=== PATIENT | female | born 2005 | race Caucasian/White ===

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

== ENCOUNTER 2023-01-14 17:56 | Outpatient (CLI) | payer OTHER, SELFPAY ==
[2023-01-14 18:12] VITALS: BMI 25.4
[2023-01-14 18:29] LABS: Microscopic, Urine URINE MICROSCOPIC (MICROSCOPIC)
[2023-01-14 18:37] VITALS: BP 124/86; PULSE 85; RESP 18; TEMP 36.8; O2SAT 100; BMI 26.9
[2023-01-14 18:43] LABS: Appearance,Urine CLEAR (Clear); Bilirubin,Urine Negative (Negative); Blood, Urine Negative (Negative); Color,Urine YELLOW (Yellow); Glucose,Urine (UA) Negative (Negative); Ketones,Urine Negative (Negative); Leukocyte Esterase,Urine 2+ (Negative); Nitrate,Urine Negative (Negative); Protein,Urine Negative (Negative); Specific Gravity, Urine 1.025 (1.005-1.030); Urobilinogen,Urine 0.2 EU/dl (0.2)
[2023-01-14 18:50] LABS: Fetal Membrane Rupture (Rapid) Negative (Negative)
[2023-01-14 18:56] LABS: Amphetamine/Metha Screen,Urine Negative ng/ml (<1000)
[2023-01-14 18:57] LABS: Benzodiazepines Screen,Urine Negative ng/ml (<200)
[2023-01-14 18:58] LABS: Cannabinoid Screen,Urine Negative ng/ml (<50); Cocaine Screen,Urine Negative ng/ml (<300)
[2023-01-14 18:59] LABS: Methadone Screen,Urine Negative ng/ml (<300)
[2023-01-14 19:00] LABS: Opiate Screen,Urine Negative ng/ml (<300); Phencyclidine Screen,Urine Negative ng/ml (<25)
[2023-01-14 19:03] LABS: Barbiturates Screen,Urine Negative ng/ml (<200)
[2023-01-14 19:16] LABS: Bacteria,Urine Trace /lpf
== END 2023-01-14 19:27 | disposition home or self-care (01) ==
LOC: OBOUT 17:58 → OB 17:59
PROVIDERS: PCP Nurse Practitioner; Visit Provider Obstetrics & Gynecology
DX: O26.892 Other specified pregnancy related conditions, second trimester (principal); Z3A.26 26 weeks gestation of pregnancy; B96.5 Pseudomonas (aeruginosa) (mallei) (pseudomallei) as the cause of diseases classified elsewhere
CPT/HCPCS: 59025; 80305; 81001; 84112; 87086; G0463

== ENCOUNTER → 2023-01-22 23:39 | Outpatient (CLI) | payer OTHER, SELFPAY ==
[2023-01-22 23:48] VITALS: BMI 29.2
[2023-01-23 00:02] VITALS: BP 128/98; PULSE 108; RESP 18; TEMP 36.4; O2SAT 99
--- NOTE | 2023-01-23 00:19 | PC.NURSE ---
Pt presents for ob outpatient infusion, vital signs good, see meditech. 18 patrick to left ac,1 attempt pt tolerated well. gentamyin order faxed to pharmacy for dosing, order in apr, started infusion at 0017, pt tolerated well.
--- NOTE | 2023-01-23 01:08 | PC.NURSE ---
Iv taken out at this time, infusion completed, pt tolerated well, coband applied and pt ambulated off unit
== END ==
PROVIDERS: PCP Nurse Practitioner; Visit Provider Obstetrics & Gynecology
DX: O23.42 Unspecified infection of urinary tract in pregnancy, second trimester (principal); N39.0 Urinary tract infection, site not specified; Z3A.26 26 weeks gestation of pregnancy
CPT/HCPCS: 96365

== ENCOUNTER → 2023-01-27 08:28 | Outpatient (CLI) | payer OTHER, SELFPAY ==
[2023-01-27 09:12] LABS: Basophils # 0.1 K/mm3 (0-0.2); Basophils % 0.4 % (0.1-2.0); Eosinophils # 0.2 K/mm3 (0.0-0.4); Eosinophils % 1.7 % (0.1-12.0); Hematocrit 37.8 % (37.0-47.0); Hemoglobin 13.1 g/dL (12.2-16.2); Lymphocytes # 2.2 K/mm3 (0.7-4.5); Lymphocytes % 16.5 % (10-50); Mean Corpuscular HGB Conc 34.6 g/dL (31.8-35.4); Mean Corpuscular Hemoglobin 31.6 pg (27.0-31.2); Mean Corpuscular Volume 91.4 fl (81-99); Mean Platelet Volume 8.6 fl (7.4-10.4); Monocytes # 0.5 K/mm3 (0.1-1.0); Monocytes % 3.9 % (1.7-9.3); Neutrophils # 10.4 K/mm3 (1.8-7.8); Neutrophils % 77.4 % (37.0-80.0); Platelet Count 241 K/mm3 (142-424); Red Blood Count 4.13 M/mm3 (4.20-5.40); Red Cell Distribution Width 13.7 % (11.5-17.5); White Blood Count 13.5 K/mm3 (4.5-13.0)
[2023-01-27 09:37] LABS: Glucose,Fasting 90 mg/dl (74-100)
[2023-01-27 10:14] LABS: Glucose 1 Hour 138 mg/dL (74-100)
== END ==
PROVIDERS: PCP Nurse Practitioner; Visit Provider Obstetrics & Gynecology
DX: Z34.93 Encounter for supervision of normal pregnancy, unspecified, third trimester (principal); Z3A.28 28 weeks gestation of pregnancy
CPT/HCPCS: 36415; 82951; 85025

== ENCOUNTER → 2023-02-01 07:54 | Outpatient (CLI) | payer OTHER, SELFPAY ==
[2023-02-01 08:34] LABS: Glucose,Fasting 81 mg/dl (74-100)
[2023-02-01 09:55] LABS: Glucose 1 Hour 98 mg/dL (74-100)
[2023-02-01 10:48] LABS: Glucose 2 Hour 70 mg/dL (74-100)
[2023-02-01 12:03] LABS: Glucose 3 Hour 54 mg/dL (74-100)
== END ==
PROVIDERS: PCP Nurse Practitioner; Visit Provider Obstetrics & Gynecology
DX: Z34.93 Encounter for supervision of normal pregnancy, unspecified, third trimester (principal); Z3A.28 28 weeks gestation of pregnancy
CPT/HCPCS: 36415; 82951

== ENCOUNTER 2023-03-24 16:49 | Outpatient (CLI) | payer OTHER, SELFPAY | END 2023-03-24 23:59 | LOC: LAB.DROPOF 16:49 | PROVIDERS: PCP Obstetrics & Gynecology; Visit Provider Obstetrics & Gynecology | DX: Z34.83 Encounter for supervision of other normal pregnancy, third trimester (principal); Z3A.37 37 weeks gestation of pregnancy | CPT/HCPCS: 86403 ==

== ENCOUNTER 2023-04-07 16:16 | Inpatient (IN) | payer OTHER, SELFPAY ==
[2023-04-07 14:37] VITALS: BMI 31.4
[2023-04-07 15:08] LABS: Basophils % 0.4 % (0.1-2.0); Eosinophils # 0.1 K/mm3 (0.0-0.4); Eosinophils % 0.8 % (0.1-12.0); Hemoglobin 11.7 g/dL (12.2-16.2); Lymphocytes # 1.5 K/mm3 (0.7-4.5); Lymphocytes % 14.1 % (10-50); Mean Corpuscular HGB Conc 33.5 g/dL (31.8-35.4); Mean Corpuscular Volume 89.6 fl (81-99); Monocytes # 0.4 K/mm3 (0.1-1.0); Monocytes % 3.9 % (1.7-9.3); Neutrophils # 8.8 K/mm3 (1.8-7.8); Neutrophils % 80.9 % (37.0-80.0); Platelet Count 297 K/mm3 (142-424); Red Blood Count 3.91 M/mm3 (4.20-5.40); Red Cell Distribution Width 13.6 % (11.5-17.5); White Blood Count 10.9 K/mm3 (4.5-13.0)
[2023-04-07 15:15] LABS: Chloride 108 mmol/L (98-107); Potassium 3.5 mmoL/L (3.5-5.1); Sodium 136 mmol/L (136-145)
[2023-04-07 15:18] LABS: Alanine Aminotransferase 21 U/L (12-78); Anion Gap 6.5 mEq/L (5-15); Aspartate Amino Transferase 26 U/L (14-36); Blood Urea Nitrogen 6 mg/dl (7-17); Carbon Dioxide 25 mmol/L (22.0-30.0); Creatinine Clearance Estimated 237 mL/min (50-200); Estimated Glomerular Filt Rate 159 ml/min (>60); GFR (African American) 192 ML/MIN (>60)
[2023-04-07 15:19] LABS: Calcium 8.6 mg/dl (8.4-10.2); Glucose 118 mg/dl (74-100)
[2023-04-07 15:22] LABS: Activated Partial Thrombo Time 25.4 seconds (22.8-30.6); Fibrinogen 444 mg/dL (229.9-363.5); Prothrombin Time 9.8 seconds (10.1-12.5)
[2023-04-07 15:25] LABS: Uric Acid 4.9 mg/dl (2.5-6.2)
[2023-04-07 15:35] LABS: Microscopic, Urine URINE MICROSCOPIC (MICROSCOPIC)
[2023-04-07 15:40] LABS: Appearance,Urine CLEAR (Clear); Bilirubin,Urine Negative (Negative); Blood, Urine 1+ (Negative); Color,Urine YELLOW (Yellow); Glucose,Urine (UA) Negative (Negative); Ketones,Urine Negative (Negative); Leukocyte Esterase,Urine TRACE (Negative); Nitrate,Urine Negative (Negative); PH,Urine 7.5 (5.0-8.5); Protein,Urine Negative (Negative); Urobilinogen,Urine 0.2 EU/dl (0.2)
[2023-04-07 15:51] LABS: Amphetamine/Metha Screen,Urine Negative ng/ml (<1000)
[2023-04-07 15:52] LABS: Barbiturates Screen,Urine Negative ng/ml (<200)
[2023-04-07 15:53] LABS: Benzodiazepines Screen,Urine Negative ng/ml (<200); Cannabinoid Screen,Urine Negative ng/ml (<50)
[2023-04-07 15:54] LABS: Cocaine Screen,Urine Negative ng/ml (<300)
[2023-04-07 15:55] LABS: Methadone Screen,Urine Negative ng/ml (<300); Opiate Screen,Urine Negative ng/ml (<300)
[2023-04-07 15:56] LABS: Phencyclidine Screen,Urine Negative ng/ml (<25)
[2023-04-07 16:27] LABS: Bacteria,Urine Trace /lpf
[2023-04-07 17:02] LABS: Creatinine,Urine Random 121 mg/dL (Not Estab.)
[2023-04-07 17:08] LABS: Microalbumin/Creatinine Ratio 17.8
--- NOTE | 2023-04-07 17:24 | P.HP_ITS ---
OB - H&P: HPI Antepartum History of Present Illness Chief complaint: Induction of labor of TN History of present illness: Ms Danna Cordoba is a 17 yo at 38w0d who was sent to [facility] L&D from the office for mild range BP. She reports BP at home was 148/110. In the office BP was 140/98. She admits to pelvic pressure, cramping and back pain. No headaches or vision changes. No swelling. Baby is active. No vaginal bleeding or leakage of fluid. GBS negative History of Present Criteria for establishing EDC:: LMP confirmed by 1st trimester US care: good care Ultrasounds: normal mid trimester US Medical complications: none Labs Blood type: B (+) positive Rubella: immune RPR/VDRL: nonreactive GBS status: negative HBsAG: negative [facility] Disclaimer: The information contained in this section may have been updated after the patient was seen, as this information can be updated by other users. Medical History (Updated 04/07/23 @ 17:35 by Jackie Mcmullen DO) 38 weeks gestation of Anxiety Dysuria Elevated blood pressure reading Gestational hypertension Migraine Nausea and vomiting during Surgical History History of excision of pilonidal cyst History of tonsillectomy Family History Other Mitral valve prolapse Social History Smoking Status: Never smoker alcohol intake: never substance use type: denies use current occupational status: unemployed Travel in the last 8 weeks: None Review of Systems Review of Systems Review of systems:: pertinent systems reviewed and negative unless documented below *Genitourinary Comments: + pelvic cramping, pressure *Musculoskeletal Comments: + low back pain Meds Home Medications and Allergies Home Medications Medication Instructions Recorded Confirmed Type promethazine 25 mg rectal 25 mg CO Q8HP PRN nausea and 09/17/22 04/07/23 Rx suppository (Promethegan) vomiting #12 ea magnesium oxide 400 mg (241.3 mg See Rx Instructions .Route 09/25/22 04/07/23 Rx magnesium) tablet .COMPLEX #60 tabs vits no.126-ferrous fum tab PO DAILY 11/12/22 04/07/23 History 28 mg iron-folic acid 800 mcg tablet (Classic ) New Prescriptions to Start Prescriptions: Allergies Allergy/AdvReac Type Severity Reaction Status Date / Time No Known Allergies Allergy Verified 04/07/23 13:41 OB - H&P: Exam Constitutional no acute distress and cooperative Routine HEENT Exam Head: Present normocephalic and atraumatic Eye: Absent conjunctivae pink ENT: Present mucous membranes moist Routine Neck Exam Present full ROM Routine Respiratory Exam Present CTA bilaterally and normal respiratory effort Routine Cardiovascular Exam Present RRR Routine Abdominal Exam Present soft (Gravid); Absent tenderness Routine Rectal Exam Patient deferred: visual exam Routine Exam External: Present normal urethra appearance; Absent erythema, tenderness, lesions or lacerations Routine Extremities Exam Present full ROM; Absent edema or calf tenderness Routine Neurological Exam Present alert, moving all extremities and normal speech Routine Psychiatric Exam Present normal affect and cooperative Detailed Labor and Delivery Exam Dilation (cm): 2 Effacement (%): 70 Cervix position: posterior station: -1 Consistency: soft Membranes: intact Baseline heart rate: 150 monitor accelerations: Present monitor decelerations: None terminal gauger variability: Moderate (11-25) Contraction frequency (min): 2 OB - Results Labs Labs: Short CBC 04/07/23 Range/Units 14:55 WBC 10.9 (4.5-13.0) K/mm3 Hgb 11.7 L (12.2-16.2) g/dL Hct 35.0 L (37.0-47.0) % Plt Count 297 (142-424) K/mm3 BMP 04/07/23 14:55 Sodium 136 Potassium 3.5 Chloride 108 H Carbon Dioxide 25 BUN 6 L Creatinine 0.50 L Glucose 118 H Calcium 8.6 Liver Function 04/07/23 Range/Units 14:55 AST 26 (14-36) U/L ALT 21 (12-78) U/L Urine 04/07/23 Range/Units 15:30 Urine Color Yellow (Yellow) Urine Appearance Clear (Clear) Urine pH 7.5 (5.0-8.5) Ur Specific [place] 1.020 (1.005-1.030) Urine Protein Negative (Negative) Urine Glucose (UA) Negative (Negative) OB - A/P Antepartum (1) 38 weeks gestation of : Status: Acute (2) Gestational hypertension: Status: Acute Additional Plan Planning to breastfeed?: Yes Additional Information:: Admit for induction of labor secondary to new onset gestational hypertension PIH labs within normal limits GBS negative Induction of labor with Cytotec and Pitocin if needed. She is ni every 2 minutes on her own. Close monitoring Anticipate
[2023-04-07 19:09] VITALS: BP 137/93; PULSE 116; RESP 18; TEMP 36.9; O2SAT 99; BMI 31.4
[2023-04-07 20:08] VITALS: BP 124/78; PULSE 106; RESP 17; TEMP 36.7; O2SAT 97
[2023-04-08] MEDS: OXYTOCIN/RINGERS LACTATE 30 UNITS/500 ML BAG IV (03:56)
[2023-04-08] MEDS: DEXTROSE 5%-LACTATED RINGERS 1,000 ML 125 ML IV (03:56)
--- NOTE | 2023-04-08 07:26 | EXP.LABOR.NO ---
Labor Note Subjective: Date: 04/08/23 Time: 07:26 regular contraction Objective: NST:: Reactive Contractions:: every 2-3 minutes Cervical Dilation:: 4 Effacement:: 70% Station: -1 Membranes: artificially ruptured Fetus: Monitoring?: Yes monitoring type:: External Assessment: Labor progressing?: Yes Problems: (1) 38 weeks gestation of : Category: Medical Code(s): Z3A.38 - 38 weeks gestation of (2) Gestational hypertension: Category: Medical Code(s): O13.9 - Gestational [-induced] hypertension without significant proteinuria, unspecified trimester Plan: Additional information:: Close monitoring Pitocin for augmentation if needed
--- NOTE | 2023-04-08 08:57 | EXP.ANES.CKL ---
[facility] Disclaimer: The information contained in this section may have been updated after the patient was seen, as this information can be updated by other users. Medical History 38 weeks gestation of Anxiety Dysuria Elevated blood pressure reading Gestational hypertension Migraine Nausea and vomiting during Surgical History History of excision of pilonidal cyst History of tonsillectomy Family History Other Mitral valve prolapse Social History (Updated 04/07/23 @ 19:14 by Tamara Taylor RN) Smoking Status: Never smoker alcohol intake: never substance use type: denies use current occupational status: unemployed Travel in the last 8 weeks: None [facility] Anesthesia Checklist Patient Identification Patient Identification: Arm Band Structural Data Admitted From: Inpatient Planned Operative Procedure/s: Labor Epidural Consent for Planned Operative Procedure(s) Verified: Yes Verified Documents: Surgical Consent and History and Physical Additional verifications Anesthesia Reactions: No Airway Assessment Mallampati Score:: Class II C-Spine Mobility Assessed: Yes TMJ Mobility Assessed: Yes Dentition: Good Dentition Neurological Assessment Level of Consciousness: Awake and Alert Anesthesia Plan Anesthesia Risk discussed: Yes Anesthesia Plan: Verified ASA Class: II Anesthesia Type: Epidural
[2023-04-08] MEDS: ePHEDrine SULF 50MG/ML VIAL 10 MG IV (09:11)
[2023-04-08] MEDS: LACTATED RINGERS 1000ML 1,000 ML 500 ML IV (09:14)
--- NOTE | 2023-04-08 13:48 | P.PCN_ITS ---
Delivery Note Delivery Date:: 04/08/23 Delivery Time:: 13:21 Anesthesia Type: Epidural Was labor medically induced?: Yes Induction method: per pitocin protocol Gestational age (weeks): 38 delivered prior to 39 weeks?: Yes Justification for early elective delivery:: Gestational Hypertension Gender: Female at 1 minute: 9 at 5 minutes: 9 Delivery Procedure:: Mom complete with epidural. Pushed for approximately 14 minutes. Head delivered spontaneously over intact perineum in MONY position. No nuchal cord. Anterior shoulder delivered with gentle downward pressure. Posterior shoulder and remainder of body delivered spontaneously. Baby placed on maternal abdomen, mouth and nares bulb suctioned, warmed/dried and stimulated. Delayed cord clamping was performed for 60 seconds. Cord was clamped and cut by father of baby. Section of cord obtained for cord gases. Cord blood was obtained. Placenta delivered spontaneously and intact. Placenta will be sent to pathology for review. Second degree perineal and left labial laceration repaired with 3-0 V icryl. Hemostasis noted. Mom and baby were skin to skin and doing well after delivery. Live female baby (baby's name is Lazaro) APGARs 9 (1 min), 9 (5 min) EBL 300 mL Laceration:: labial Placental Delivery Description: Spontaneous
[2023-04-08] MEDS: WITCH HAZEL 40 PADS/BOX 1 EACH TP (16:09)
[2023-04-08] MEDS: BENZOCAINE-MENTHOL SPRAY 56GM CAN TP (16:10)
[2023-04-08 19:53] VITALS: BP 131/79; PULSE 110; RESP 18; TEMP 38.1; O2SAT 99
[2023-04-08] MEDS: ACETAMINOPHEN 500MG TAB 1000 MG PO (20:07)
[2023-04-08 20:37] VITALS: TEMP 37.4
[2023-04-08 22:10] VITALS: TEMP 37.2
[2023-04-09] VITALS: BP 121/74; PULSE 99; RESP 17; TEMP 37; O2SAT 98
[2023-04-09 04:05] VITALS: BP 122/77; PULSE 106; RESP 17; TEMP 36.8; O2SAT 99
[2023-04-09] MEDS: ACETAMINOPHEN 500MG TAB 1000 MG PO ×3 (04:11→22:16)
[2023-04-09 05:51] LABS: Basophils % 0.2 % (0.1-2.0); Eosinophils # 0.1 K/mm3 (0.0-0.4); Eosinophils % 0.6 % (0.1-12.0); Hematocrit 29.5 % (37.0-47.0); Hemoglobin 9.9 g/dL (12.2-16.2); Lymphocytes # 2.4 K/mm3 (0.7-4.5); Lymphocytes % 15.8 % (10-50); Mean Corpuscular HGB Conc 33.5 g/dL (31.8-35.4); Mean Corpuscular Hemoglobin 30.1 pg (27.0-31.2); Mean Corpuscular Volume 89.7 fl (81-99); Mean Platelet Volume 9.3 fl (7.4-10.4); Monocytes # 0.6 K/mm3 (0.1-1.0); Monocytes % 3.9 % (1.7-9.3); Neutrophils # 11.9 K/mm3 (1.8-7.8); Neutrophils % 79.6 % (37.0-80.0); Platelet Count 263 K/mm3 (142-424); Red Blood Count 3.29 M/mm3 (4.20-5.40); Red Cell Distribution Width 13.7 % (11.5-17.5)
[2023-04-09 05:53] LABS: MANUAL DIFFERENTIAL MANUAL DIFFERENTIAL (MANUAL DIFF)
[2023-04-09 06:21] LABS: Anisocytosis 1+; Hypochromasia 1+; Lymphocytes % 15 % (10-50); Monocytes % 3 % (2-9); Neutrophils % 82 % (42-76); Platelet Estimate Normal; Total Cells Counted 100
--- NOTE | 2023-04-09 10:53 | P.PN_ITS ---
Subjective *Date: 04/09/23 *Time: 12:10 Interval history: PPD # 1 s/p Feeling well. Pain controlled. Breast feeding. Lochia is appropriate. Voiding without difficulty and passing flatus. Tolerating regular diet. Denies fever/chills, chest pain and shortness of breath. No headaches, vision changes, lightheadedness/dizziness. No lower extremity swelling. Ambulating well ad ministerio. Medical Exam Vital signs and Labs for Last 24 Hours: Vital Signs Temp Pulse Resp BP Pulse Ox O2 Del Method 04/09/23 04:05 98.3 F 106 H 17 122/77 99 Room Air 04/09/23 00:00 98.6 F 99 H 17 121/74 98 Room Air 04/08/23 22:10 98.9 F 04/08/23 20:37 99.4 F 04/08/23 19:53 100.5 F H 110 H 18 131/79 99 Room Air Laboratory Results - last 24 hr 04/08/23 13:33: Cord ABG pH 7.40 04/09/23 05:08: WBC 15.0 H D, RBC 3.29 L, Hgb 9.9 L, Hct 29.5 L, MCV 89.7, MCH 30.1, MCHC 33.5, RDW 13.7, Plt Count 263, MPV 9.3, Neut % (Auto) 79.6, Lymph % (Auto) 15.8, Sunflower % (Auto) 3.9, Eos % (Auto) 0.6, Baso % (Auto) 0.2, Neut # (Auto) 11.9 H, Lymph # (Auto) 2.4, Sunflower # (Auto) 0.6, Eos # (Auto) 0.1, Baso # (Auto) 0.0, Total Counted 100, Neutrophils % (Manual) 82 H, Lymphocytes % (Manual) 15, Monocytes % (Manual) 3, Platelet Estimate Normal, Hypochromasia 1+, Anisocytosis 1+ I & O for Labs for Last 24 Hours: Intake & Output 04/06/23 04/07/23 04/08/23 04/09/23 23:59 23:59 23:59 23:59 Weight 183 lb Head: Present atraumatic and normocephalic ENT: Present normal exam and mucous membranes moist Neck: Present full ROM Respiratory: Present CTA bilaterally and normal respiratory effort Cardiac: Present Reg Rate and Rhythm GI: Present soft; Absent distention or tenderness Comments:: Uterine fundus firm and below umbilicus Rectal (female): Present deferred (female): Present deferred Extremities: Present full ROM; Absent edema or calf tenderness Neuro: Present alert, awake and moves all extremities Assessment and Plan *Assessment and plan (1) Status post vaginal delivery: Status: Acute Category: Surgical (2) 38 weeks gestation of : Status: Acute Category: Medical Code(s): Z3A.38 - 38 weeks gestation of (3) Gestational hypertension: Status: Acute Category: Medical Code(s): O13.9 - Gestational [-induced] hypertension without significant proteinuria, unspecified trimester Plan Continue routine care Encouraged increased ambulation Plan d/c home tomorrow
[2023-04-09] MEDS: LANOLIN CREAM 40GM TP (11:52)
[2023-04-09] MEDS: IRON SUCROSE COMPLEX 200 MG in 0.9 % SODIUM CHLORIDE 100 ML 220 MG IV (13:40)
[2023-04-09 19:47] VITALS: BP 125/72; PULSE 95; RESP 17; TEMP 36.6; O2SAT 98
[2023-04-09 23:59] VITALS: BP 121/65; PULSE 85; RESP 18; TEMP 37; O2SAT 99
[2023-04-10 03:38] VITALS: BP 134/76; PULSE 84; RESP 18; TEMP 36.9; O2SAT 98
--- NOTE | 2023-04-10 10:33 | EXP.DC.SUM ---
General Admission date:: 04/07/23 Discharge date: 04/10/23 HPI HPI HPI: Ms Danna Cordoba is a 17 yo at 38w0d who was sent to [facility] L&D from the office for mild range BP. She reports BP at home was 148/110. In the office BP was 140/98. She admits to pelvic pressure, cramping and back pain. No headaches or vision changes. No swelling. Baby is active. No vaginal bleeding or leakage of fluid. GBS negative History of Present Criteria for establishing EDC:: LMP confirmed by 1st trimester US care: good care Ultrasounds: normal mid trimester US Medical complications: none Labs Blood type: B (+) positive Rubella: immune RPR/VDRL: nonreactive GBS status: negative HBsAG: negative Hospital Course Hospital Course Hospital Course: Gertrudis is a 17yo PPD#1 from a at 38w0d secondary to GHTN. She is doing well this morning and desires DC. She did have acute blood loss anemia and received Venofer 200 mg IV x 1 dose on PPD#1. Her Hgb was 9.9. This morning she is asymptomatic and doing well. She denies any ADAMS, vision changes or RUQ oain. Her BP has been well controlled. Reports her pain is well controlled. She is breast feeding. Enouraged follow up with . Dr. Crow is her pasting inspector. Lochia is appropriate. Voiding without difficulty and passing flatus. Tolerating regular diet. Denies fever/chills, chest pain and shortness of breath. No lightheadedness/dizziness. No lower extremity swelling. Ambulating well ad ministerio. Routine discharge instructions were reviewed with the pt in detail and she voiced understanding. Exam Data for Last 24 hours Vital signs and Labs for Last 24 Hours: Temp Pulse Resp BP Pulse Ox O2 Del Method 98.5 F 84 18 134/76 98 Room Air 04/10/23 03:38 04/10/23 03:38 04/10/23 03:38 04/10/23 03:38 04/10/23 03:38 04/10/23 03:38 I & O for Last 24 hours: Intake & Output 04/07/23 04/08/23 04/09/23 04/10/23 23:59 23:59 23:59 23:59 Weight 183 lb Constitutional Constitutional: no acute distress *Routine HEENT Exam Head: Present normocephalic Eye: Present EOMI and PERRL ENT: Present mucous membranes moist *Routine Neck Exam Neck: Present supple; Absent lymphadenopathy *Routine Respiratory Exam Respiratory: Present CTA bilaterally *Routine Cardiovascular Exam Cardiovascular: Present RRR *Routine Abdominal Exam Abdominal: Present soft and normoactive bowel sounds; Absent tenderness *Routine Exam Comments: Fundus below umbilicus and firm with scant lochia *Routine Extremities Exam Extremities: Absent cyanosis, clubbing or edema *Routine Skin Exam Skin: Present warm; Absent rash *Routine Neurological Exam Neurological: Present alert and oriented X3 DS: Diagnosis Discharge Diagnosis (1) Status post vaginal delivery: Status: Acute Problem details: Stable. PPD#2 s/p -Doing well. VSS. Serial lochia and fundal checks. -B+/antibody negative -Bottle feeding, female -Contraception: [facility] Mcmullen at follow up visit -Follow-up 2 weeks for routine visit #Anemia - acute blood loss -Hemoglobin: 11.7--> 9.9 - asymptomatic anemia noted. Vitals stable. -Continue monitoring. DC with Fe -s/p IV Iron infusion on PPD1 -EBL: 300mL -Dispo: home today pending mother/ status (2) 38 weeks gestation of : Status: Acute Code(s): Z3A.38 - 38 weeks gestation of (3) Gestational hypertension: Status: Acute Code(s): O13.9 - Gestational [-induced] hypertension without significant proteinuria, unspecified trimester Meds Home Medications and Allergies Home Medications Medication Instructions Recorded Confirmed Type vits no.126-ferrous fum 1 tab PO DAILY 11/12/22 04/08/23 History 28 mg iron-folic acid 800 mcg tablet (Classic ) magnesium oxide 400 mg (241.3 mg 800 mg PO BID 04/08/23 04/08/23 History magnesium) tablet acetaminophen 500 mg tablet 500 mg PO Q6H PRN fever #30 tabs 04/10/23 Rx ferrous sulfate 325 mg (65 mg 325 mg PO DAILY #30 tabs 04/10/23 Rx iron) tablet,delayed release ibuprofen 800 mg tablet 800 mg PO Q8H PRN pain #60 tabs 04/10/23 Rx sennosides 8.6 mg tablet (Senna 8.6 mg PO BIDP PRN Constipation 04/10/23 Rx Lax) #60 tabs New Prescriptions to Start Prescriptions: acetaminophen Dee Fraser ferrous sulfate Dee Fraser ibuprofen EvelioDee sennosides [Senna Lax] Dee Fraser Allergies Allergy/AdvReac Type Severity Reaction Status Date / Time No Known Allergies Allergy Verified 04/07/23 13:41 Discharge Plan Disposition Patient Disposition: Home, Self-Care Discharge Order Discharge Orders: Discharge Order (Routine); Ordered 04/10/23 Ordered By: Dee Fraser Follow up Plan Follow up with: Jackie Mcmullen DO [Staff Physician] - 04/19/23 9:15 am Prescriptions/Medication Reconciliation: New sennosides [Senna Lax] 8.6 mg Tablet 8.6 mg PO BIDP PRN (Reason: Constipation) Qty: 60 2RF ibuprofen 800 mg tablet 800 mg PO Q8H PRN (Reason: pain) Qty: 60 2RF acetaminophen 500 mg tablet 500 mg PO Q6H PRN (Reason: fever) Qty: 30 3RF ferrous sulfate 325 mg (65 mg iron) tablet,delayed release (DR/EC) 325 mg PO DAILY Qty: 30 3RF Continued Classic 28 mg iron- 800 mcg tablet 1 tab PO DAILY magnesium oxide 400 mg (241.3 mg magnesium) tablet 800 mg PO BID Rx Instructions: TAKE 2 TABLETS BY MOUTH TWICE A DAY Problem Reconciliation Problems Reviewed?: Yes Patient Discharge Instructions ACTIVITY: Continue current activity and Limited activity DIET: regular diet Additional Instructions: Congratulations on the delivery of your sweet baby girl. It is my privilege to be a part of your EMERGENCY MEDICAL TECHNICIAN/DRIVER team and I am so thankful I could be a part of your special day. Discharge: 1. Take 800 mg Ibuprofen every 8 hours as needed for pain. You can also take 500-1000 mg of Tylenol in between doses, every 6-8 hours. 2. Iron supplements can make you constipated. Colace can be taken 1-2 times per day as you need. You can take iron tablets every other day if constipation is too bad. 3. Nothing in the vagina for 6 weeks - no sex, douching, tampons. No tub baths 4. Do not lift greater than 15 pounds for 6 weeks, this is the equivalent of 2 gallons of milk. 5. Reasons to return to L&D or call On-Call doctor - fever (greater than 100.4) - heavy vaginal bleeding (soaking through 1 pad in less than 2 hours or passing clots that are egg sized) - vaginal discharge (malodorous and/or purulent) - severe headaches, leg tenderness/edema, or any other symptoms that warrant immediate medical attention. 6. depression/blues - Normal to feel anxious/overwhelmed for first 2 weeks - Talk to your doctor if: anxiety lasts over 2 weeks, trouble bonding with baby, withdrawing from other family members, thoughts of harming yourself or others Blood pressure and preeclampsia instructions 1. Please take your blood pressure twice daily. 2. Please call if greater than 2 values are higher than: 150 systolic (the top number) or 100 diastolic (the bottom number). 3. Please go to the emergency room or labor and delivery triage if any value is higher than: 160 systolic (the top number) or 110 diastolic (the bottom number). 4. Please call if unrelenting headache (does not go away with rest or Tylenol or ibuprofen), changes in vision (spots, floaters, flashes of light), chest pain, shortness of breath, or right upper quadrant (liver) abdominal pain. Dee Fraser DO [facility] [phone] *Nothing in the Vagina for 6 weeks* *No strenuous activity* *No heavy lifting* *No tub baths until okay's by MD* Patient Instructions: Depression, Hemorrhage, DI for Labor and Delivery, Vaginal , DI for Pre-eclampsia, [facility] Post Discharge Instructions Providers Primary Care Provider: Shayna Guy Admit Provider: Jackie Mcmullen Attending Provider: Jackie Mcmullen
== END 2023-04-10 12:22 | disposition home or self-care (01) | DRG 806 ==
LOC: OBOUT 16:17 → OB 16:17
PROVIDERS: Admitting Provider Obstetrics & Gynecology; PCP Nurse Practitioner; Visit Provider Obstetrics & Gynecology
DX: O13.4 Gestational [pregnancy-induced] hypertension without significant proteinuria, complicating childbirth (principal); D62 Acute posthemorrhagic anemia; Z37.0 Single live birth; Z3A.38 38 weeks gestation of pregnancy; O90.81 Anemia of the puerperium; O70.1 Second degree perineal laceration during delivery
CPT/HCPCS: 59409; 36415; 59025; 80048; 80307; 81001; 82043; 82570; 82800; 84450; 84460; 84550; 85007; 85025; 85384; 85610; 85730; 86850; 88307; 94761; C1758; G0283; J1756

== ENCOUNTER 2023-04-13 09:55 | Outpatient (CLI) | payer OTHER, SELFPAY ==
--- NOTE | 2023-04-13 09:58 | CA_ITS ---
FINAL REPORT TECHNIQUE: Multiple transverse and longitudinal images were performed of the right femoral-popliteal deep venous system with augmentation and compression maneuvers. CLINICAL HISTORY: right calf pain/edema s/p vaginal delivery 04/08/23, denies trauma to leg, no known clotting disorder/issues. COMPARISON: None FINDINGS: Right lower extremity duplex ultrasound demonstrates normal flow in the deep venous system. There is no abnormal echogenicity to suggest thrombus. There is normal compression and augmentation. IMPRESSION: No evidence of right DVT. Reviewed, Interpreted and Dictated by Rabia Barahona MD Transcribed by Laurence Mishra Authenticated and [facility]
[2023-04-13 11:07] LABS: Basophils % 0.1 % (0.1-2.0); Eosinophils # 0.4 K/mm3 (0.0-0.4); Eosinophils % 2.1 % (0.1-12.0); Hematocrit 33.5 % (37.0-47.0); Hemoglobin 10.9 g/dL (12.2-16.2); Lymphocytes # 2.2 K/mm3 (0.7-4.5); Lymphocytes % 11.9 % (10-50); Mean Corpuscular HGB Conc 32.6 g/dL (31.8-35.4); Mean Corpuscular Hemoglobin 29.9 pg (27.0-31.2); Mean Corpuscular Volume 91.8 fl (81-99); Mean Platelet Volume 8.5 fl (7.4-10.4); Monocytes # 0.6 K/mm3 (0.1-1.0); Monocytes % 3.2 % (1.7-9.3); Neutrophils # 15.1 K/mm3 (1.8-7.8); Neutrophils % 82.7 % (37.0-80.0); Platelet Count 418 K/mm3 (142-424); Red Blood Count 3.65 M/mm3 (4.20-5.40); Red Cell Distribution Width 14.1 % (11.5-17.5); White Blood Count 18.2 K/mm3 (4.5-13.0)
[2023-04-13 11:12] LABS: MANUAL DIFFERENTIAL MANUAL DIFFERENTIAL (MANUAL DIFF)
[2023-04-13 11:29] LABS: Alanine Aminotransferase 21 U/L (12-78); Albumin Level 3.7 g/dl (3.5-5.0); Albumin/Globulin Ratio 1.4 (1.1-1.8); Alkaline Phosphatase 117 U/L (38-126); Anion Gap 9.8 mEq/L (5-15); Aspartate Amino Transferase 23 U/L (14-36); Bilirubin,Total 0.4 mg/dl (0.2-1.3); Blood Urea Nitrogen 11 mg/dl (7-17); Calcium 9.2 mg/dl (8.4-10.2); Carbon Dioxide 24 mmol/L (22.0-30.0); Chloride 108 mmol/L (98-107); Estimated Glomerular Filt Rate 129 ml/min (>60); GFR (African American) 156 ML/MIN (>60); Globulin 2.6 g/dL (1.3-3.2); Glucose 106 mg/dl (74-100); Potassium 3.8 mmoL/L (3.5-5.1); Sodium 138 mmol/L (136-145); Total Protein,Serum 6.3 g/dl (6.3-8.2)
[2023-04-13 13:50] LABS: Lymphocytes % 11 % (10-50); Monocytes % 2 % (2-9); Neutrophils % 80 % (42-76); Promyelocytes % 1 %; Total Cells Counted 100
[2023-04-13 13:59] LABS: Platelet Estimate Slight Increase; RBC Morphology Normal
[2023-04-13 14:00] LABS: Toxic Granulation 1+
== END 2023-04-13 23:59 ==
LOC: RT 09:56
PROVIDERS: PCP Nurse Practitioner; Visit Provider Nurse Practitioner
DX: M79.661 Pain in right lower leg (principal); D72.829 Elevated white blood cell count, unspecified
CPT/HCPCS: 36415; 80053; 85007; 85025; 93971

== ENCOUNTER 2024-04-13 15:37 | Outpatient (CLI) | payer OTHER, SELFPAY ==
[2024-04-13 20:48] LABS: HCG,Quantitative 133 mIU/ml (0-5.42)
[2024-04-15 10:11] LABS: Progesterone 15.3 ng/mL (.)
== END 2024-04-13 23:59 | disposition home or self-care (01) ==
LOC: LAB.DROPOF 04-14 16:15
PROVIDERS: Obstetrics & Gynecology; PCP Nurse Practitioner; Visit Provider Nurse Practitioner
DX: Z32.01 Encounter for pregnancy test, result positive (principal); N91.2 Amenorrhea, unspecified
CPT/HCPCS: 84144; 84702

== ENCOUNTER 2024-04-30 10:26 | Emergency (ER) | payer OTHER, SELFPAY ==
[2024-04-30] VITALS (9 sets, daily range): BP systolic 112–149; BP diastolic 69–91; PULSE 61–111; RESP 14–18; TEMP 36.6–37.2; O2SAT 95–100; BMI 25.8
--- NOTE | 2024-04-30 10:46 | ED_ITS ---
Discharge Plan Disposition Patient Disposition: Home, Self-Care Condition: Good Prescriptions Prescriptions: New metoclopramide HCl 5 mg tablet 5 mg PO DAILY Qty: 30 0RF cefadroxil 1 gram tablet 1,000 mg PO BID 5 Days Qty: 10 0RF No Action Classic 28 mg iron- 800 mcg tablet 1 tab PO DAILY Referrals Follow up/Referrals: Shayna Guy APRN [Primary Care Provider] - See instructions Activity Restrictions/Add. Instructions Additional Instructions/Restrictions: You have bacteria in your urine, so we will be treating this with cefadroxil, an antibiotic. Take this as prescribed. You are also being prescribed Reglan for the nausea and vomiting. Take this as prescribed. Follow-up with your OB if symptoms do not improve, or return to the emergency department if you have uncontrollable nausea and vomiting. Clinical Impressions Clinical Impression: Asymptomatic bacteriuria during , Nausea and vomiting during Instructions Patient Instructions: DI for Nausea -- Adult Print Language Print Language: Arabic Discharge ED Provider: Aj Perez General Adult HPI General Chief complaint: Nausea/Vomiting/Diarrhea Stated complaint: 6wks . Dizziness, Loss weight Time Seen by Provider: 04/30/24 10:46 History of Present Illness HPI narrative: Danna Cordoba is a 18-year-old female with no significant past medical history presents to the emergency department for concern for nausea and vomiting and dehydration. Patient states that she is approximately 6 weeks and had hyperemesis gravidarum until the second trimester with her first . She states that she started having uncontrollable nausea and vomiting starting on multiple times a day refractory to at home Zofran. She has been unable to eat or drink anything since that time and is continue to vomit. She states that she had to take Phenergan suppositories with her previous , however with her daughter, she does not want to take this again as a cause her to become significantly drowsy. She states that she had some vaginal spotting approximately a week ago but is never had any abdominal pain and is not having any vaginal bleeding currently. She reports that her urine is dark and dimas some white but she believes she may be dehydrated. Related Data Home Medications ?Medication ?Instructions ?Recorded ?Confirmed vits no.126-ferrous fum 1 tab PO DAILY 11/12/22 04/30/24 28 mg iron-folic acid 800 mcg tablet (Classic ) Previous Rx's ?Medication ?Instructions ?Recorded cefadroxil 1 gram tablet 1,000 mg PO BID 5 days #10 tabs 04/30/24 metoclopramide HCl 5 mg tablet 5 mg PO DAILY #30 tabs 04/30/24 Allergies Allergy/AdvReac Type Severity Reaction Status Date / Time No Known Allergies Allergy Verified 04/30/24 11:00 [facility] Disclaimer: The information contained in this section may have been updated after the patient was seen, as this information can be updated by other users. Medical History 38 weeks gestation of Anxiety Dysuria Elevated blood pressure reading Gestational hypertension Migraine Nausea and vomiting during Surgical History History of excision of pilonidal cyst History of tonsillectomy Status post vaginal delivery Stable. PPD#2 s/p -Doing well. VSS. Serial lochia and fundal checks. -B+/antibody negative -Bottle feeding, female -Contraception: To jdiscuss with Dr. Mcmullen at follow up visit -Follow-up 2 weeks for routine visit #Anemia - acute blood loss -Hemoglobin: 11.7--> 9.9 - asymptomatic anemia noted. Vitals stable. -Continue monitoring. DC with Fe -s/p IV Iron infusion on PPD1 -EBL: 300mL -Dispo: home today pending mother/ status Family History Other Mitral valve prolapse Social History Smoking Status: Former smoker alcohol intake: never substance use type: denies use current occupational status: unemployed Travel in the last 8 weeks: None Have you lived/traveled outside US in past 30 days?: No Contact w/someone who lives/traveled outside US past 30 days?: No Exposure to someone with infectious disease in past 14 days?: No Do you have a fever (greater than 100.4 F or 38 C)?: No Have you tested positive for COVID-19: No Exposed to someone with COVID-19 in past 14 days?: No Do you have a sore throat?: No Do you have a cough?: No Do you have any weakness?: No Do you have any diarrhea?: No Are you experiencing any unusual bleeding?: No Do you have any muscle aches/pain?: No Do you have any abdominal pain?: No Are you experiencing loss of taste or smell?: No Other Medical History Have you received the Flu Vaccine for this season: No Have you received the Pneumonia Vaccine: No ROS Obtained: Yes Systems reviewed as appropriate & no additional complaints except as documented Physical Exam General General appearance: alert and in no apparent distress Head Head exam: atraumatic Eye Eye exam: Present normal appearance ENT ENT exam: Present normal external ear exam Neck Neck exam: Present full ROM Chest Chest inspection: Present symmetric chest wall rise Respiratory Respiratory exam: Present normal lung sounds bilaterally; Absent respiratory distress, wheezes or stridor Cardiovascular Cardiovascular exam: Present normal rhythm and tachycardia Abdominal Exam Abdominal exam: Present soft; Absent distention, tenderness, guarding, rebound or rigidity Extremities Exam Extremities exam: Present normal inspection Back Exam Back exam: Present normal inspection Neurological Exam Neurological exam: Present alert and oriented X3 Psychiatric Psychiatric exam: Present normal affect Skin Skin exam: Present warm, dry and other (Pale) Medical Decision Making Medical Records Screening: Per USPSTF and CDC recommendations, given the prevalence of disease in our region, it is our hospital?s policy to screen for HIV and viral Hepatitis for all patients aged 18 and over and those with ongoing risk factors. [place] Inquiry Pt receiving controlled substance: No Vital Signs: 04/30/24 10:45 04/30/24 11:01 04/30/24 11:02 Temperature 98.9 F Temperature Source Oral Pulse Rate 80 85 Pulse Rate [Left] 96 H Pulse Rate [Orthostatic Lying Right] Pulse Rate [Orthostatic Sitting Right] Pulse Rate [Orthostatic Standing Right] Respiratory Rate 14 Blood Pressure 118/69 129/85 Blood Pressure [Orthostatic Lying Right Arm] Blood Pressure [Orthostatic Sitting Right Arm] Blood Pressure [Orthostatic Standing Right Arm] Blood Pressure [Right Arm] 133/90 Blood Pressure Mean [Right Arm] 104 Blood Pressure Source [Right Arm] Automatic Cuff Blood Pressure Position [Right Arm] Sitting 02 Sat by Pulse Oximetry 99 100 100 Oxygen Delivery Method Room Air Room Air Room Air 04/30/24 11:03 04/30/24 11:04 04/30/24 11:30 Temperature Temperature Source Pulse Rate 87 61 Pulse Rate [Left] Pulse Rate [Orthostatic Lying Right] 80 Pulse Rate [Orthostatic Sitting Right] 98 H Pulse Rate [Orthostatic Standing Right] 111 H Respiratory Rate Blood Pressure 121/84 112/69 Blood Pressure [Orthostatic Lying Right Arm] 118/69 Blood Pressure [Orthostatic Sitting Right Arm] 129/85 Blood Pressure [Orthostatic Standing Right Arm] 121/84 Blood Pressure [Right Arm] Blood Pressure Mean [Right Arm] Blood Pressure Source [Right Arm] Blood Pressure Position [Right Arm] 02 Sat by Pulse Oximetry 100 100 Oxygen Delivery Method Room Air Room Air 04/30/24 11:45 04/30/24 13:45 04/30/24 14:01 Temperature 97.9 F Temperature Source Pulse Rate 84 95 H 99 H Pulse Rate [Left] Pulse Rate [Orthostatic Lying Right] Pulse Rate [Orthostatic Sitting Right] Pulse Rate [Orthostatic Standing Right] Respiratory Rate 18 Blood Pressure 149/85 H 141/91 H Blood Pressure [Orthostatic Lying Right Arm] Blood Pressure [Orthostatic Sitting Right Arm] Blood Pressure [Orthostatic Standing Right Arm] Blood Pressure [Right Arm] Blood Pressure Mean [Right Arm] Blood Pressure Source [Right Arm] Blood Pressure Position [Right Arm] 02 Sat by Pulse Oximetry 100 95 Oxygen Delivery Method Room Air Lab Data Lab Results 04/30/24 10:41: WBC 11.8, RBC 5.02, Hgb 14.8, Hct 43.2, MCV 86.1, MCH 29.5, MCHC 34.3, RDW 12.3, Plt Count 304, MPV 10.8 H, Neut % (Auto) 87.9 H, Lymph % (Auto) 8.5 L, [place] % (Auto) 2.7, Eos % (Auto) 0.3, Baso % (Auto) 0.3, Neut # (Auto) 10.4 H, Lymph # (Auto) 1.0, [place] # (Auto) 0.3, Eos # (Auto) 0.0, Baso # (Auto) 0.0, Sodium 138, Potassium 4.1, Chloride 106, Carbon Dioxide 15 L, Anion Gap 21.1 H, BUN 11, Creatinine 0.60, Estimated Creat Clear 171, Estimated GFR 127, Est GFR ( Amer) 154, Glucose 80, Calcium 9.8, Total Bilirubin 1.2, AST 31, ALT 25, Alkaline Phosphatase 74, Total Protein 8.9 H D, Albumin 5.6 H, G lobulin 3.3 H, Albumin/Globulin Ratio 1.7, Lipase 111, HCG, Quant 53357 H, Urine Color Yellow, Urine Appearance Clear, Urine pH 5.5, Ur Specific [place] 1.030, U rine Protein Trace A, Urine Glucose (UA) Negative, Urine Ketones >=160, Urine Blood Negative, Urine Nitrate Negative, Urine Bilirubin Negative, Urine Urobilinogen 0.2, Ur Leukocyte Esterase Negative, Urine RBC None, Urine WBC 5- 10, Ur Squamous Epith Cells 5-10, Urine Bacteria 1+, HCV Ab THU w/Rflx PCR Qn Negative, HIV Ag/Ab Combo Qual Negative 04/30/24 13:06: Blood Type B Positive 04/30/24 10:41 04/30/24 10:41 Orders (Tests/Meds): ED MEDICATIONS Discontinued Medications Generic Name Dose Route Start Last Admin Trade Name Freq PRN Reason Stop Dose Admin Lactated Ringer's 1,000 mls @ 999 mls/hr 04/30/24 10:52 04/30/24 11:01 Lactated Ringer's 1000 Ml Bag IV 04/30/24 11:52 999 mls/hr .Q1H1M ONE Administration Metoclopramide HCl 10 mg 04/30/24 10:52 04/30/24 11:00 Metoclopramide Hcl 10mg/2ml Vial IVP 04/30/24 10:53 10 mg ONCE ONE Administration ORDERS Category Date Time Status ABO/RH Type Stat BBK 04/30/24 13:06 Completed CBC w/Auto Diff [Complete Blood Count Auto Diff] Stat Lab 04/30/24 10:41 Completed CMP [Comprehensive Metabolic Panel] Stat Lab 04/30/24 10:41 Completed HCG,Quantitative Stat Lab 04/30/24 10:41 Completed HIV Combo Stat Lab 04/30/24 10:41 Completed Hepatitis C Ab Qual. W/ RFX Stat Lab 04/30/24 10:41 Completed Lipase Stat Lab 04/30/24 10:41 Completed UA [Urinalysis and Microscopic] Stat Lab 04/30/24 10:41 Completed US OB transvaginal Stat Ultrasound 04/30/24 11:13 Completed Medical Decision Narrative: Danna Cordoba is a 18-year-old female with no significant past medical history presents to the emergency department for concern for nausea and vomiting and dehydration. Patient states that she is approximately 6 weeks and had hyperemesis gravidarum until the second trimester with her first . She states that she started having uncontrollable nausea and vomiting starting on multiple times a day refractory to at home Zofran. She has been unable to eat or drink anything since that time and is continue to vomit. She states that she had to take Phenergan suppositories with her previous , however with her daughter, she does not want to take this again as a cause her to become significantly drowsy. She states that she had some vaginal spotting approximately a week ago but is never had any abdominal pain and is not having any vaginal bleeding currently. She reports some lightheadedness with standing but denies any while sitting down. She reports that her urine is dark and dimas some white but she believes she may be dehydrated. On arrival, patient is normotensive, heart rate within normal limits, breathing comfortably on room air with oxygen saturation at 100% SpO2. Differential diagnosis includes, but is not limited to: Hyperemesis gravidarum, ectopic , electrolyte derangement, orthostatic hypotension, dehydration, anemia, among others Workup in the emergency department included: ABO/Rh, UA, CBC, CMP, lipase, orthostatic vital signs, transvaginal ultrasound to evaluate for intrauterine versus ectopic , 10 mg of IV Reglan for symptomatic relief, 1 L lactated ringer Patient's blood pressure did not significantly change with orthostatic vital signs, however she became significantly more tachycardic with standing consistent with orthostatic tachycardia. Workup demonstrated no leukocytosis, no anemia, electrolytes within normal limits, however elevated anion gap of 21.1 likely secondary to starvation ketosis, liver enzymes within normal limits, lipase within normal limits, quantitative beta-hCG at 41,675. Urinalysis with trace protein, ketones present negative nitrites, 5-10 white blood cells, but 1+ bacteria. Patient blood type is B+, so no RhoGAM is indicated at this time. Transvaginal ultrasound confirmed a viable intrauterine estimated to be 6 weeks and 1 day old. See radiology report for details. On reassessment, patient reported some mild nausea but overall significantly improved from her baseline. After fluids, she felt much better. At this time, is felt the patient is appropriate for discharge with prescription for Reglan to control her nausea symptoms better with close follow-up with her OB physician. Return precautions were given. All questions were answered. She demonstrated understanding and was in agreement this plan. She was then discharged from the emergency department in stable condition Critical Care Critical Care Time Critical Care Time: No
[2024-04-30 10:58] LABS: Microscopic, Urine URINE MICROSCOPIC (MICROSCOPIC)
[2024-04-30 10:59] LABS: Basophils % 0.3 % (0.1-2.0); Eosinophils % 0.3 % (0.1-12.0); Hematocrit 43.2 % (37.0-47.0); Hemoglobin 14.8 g/dL (12.2-16.2); Lymphocytes % 8.5 % (10-50); Mean Corpuscular HGB Conc 34.3 g/dL (31.8-35.4); Mean Corpuscular Hemoglobin 29.5 pg (27.0-31.2); Mean Corpuscular Volume 86.1 fl (81-99); Mean Platelet Volume 10.8 fl (7.4-10.4); Monocytes # 0.3 K/mm3 (0.1-1.0); Monocytes % 2.7 % (1.7-9.3); Neutrophils # 10.4 K/mm3 (1.8-7.8); Neutrophils % 87.9 % (37.0-80.0); Platelet Count 304 K/mm3 (142-424); Red Blood Count 5.02 M/mm3 (4.20-5.40); Red Cell Distribution Width 12.3 % (11.5-17.5); White Blood Count 11.8 K/mm3 (4.5-13.0)
[2024-04-30] MEDS: METOCLOPRAMIDE HCL 10MG/2ML VIAL 10 MG IVP (11:00)
[2024-04-30 11:01] LABS: Albumin Level 5.6 g/dl (3.5-5.0); Chloride 106 mmol/L (98-107); Potassium 4.1 mmoL/L (3.5-5.1); Sodium 138 mmol/L (136-145)
[2024-04-30] MEDS: LACTATED RINGERS 1000ML 1,000 ML 999 ML IV (11:01)
[2024-04-30 11:04] LABS: Alanine Aminotransferase 25 U/L (12-78); Albumin/Globulin Ratio 1.7 (1.1-1.8); Alkaline Phosphatase 74 U/L (38-126); Anion Gap 21.1 mEq/L (5-15); Aspartate Amino Transferase 31 U/L (14-36); Bilirubin,Total 1.2 mg/dl (0.2-1.3); Blood Urea Nitrogen 11 mg/dl (7-17); Carbon Dioxide 15 mmol/L (22.0-30.0); Creatinine Clearance Estimated 171 mL/min (50-200); Estimated Glomerular Filt Rate 127 ml/min (>60); GFR (African American) 154 ML/MIN (>60); Globulin 3.3 g/dL (1.3-3.2); Lipase 111 U/L (23-300); Total Protein,Serum 8.9 g/dl (6.3-8.2)
[2024-04-30 11:05] LABS: Calcium 9.8 mg/dl (8.4-10.2); Glucose 80 mg/dl (74-100)
--- NOTE | 2024-04-30 11:13 | US_ITS ---
PROCEDURE INFORMATION: Exam: US , Transvaginal Exam date and time: 04/30/2024 11:45 AM Age: 18 years old Clinical indication: Lmp or gestational age (in weeks): 03/17/24; Other: Spotting; ; Additional info: 6wks , vaginal bleed, confirm iup LABS AND CLINICAL REPORTS: Last menstrual period start date: 03/17/2024 Gestational age (Established): 6 w 2 d Estimated due date (Established): 12/22/2024 TECHNIQUE: Imaging protocol: Real-time transvaginal obstetrical ultrasound of the maternal pelvis with image documentation. Transvaginal imaging was used for better evaluation of the fetus, adnexa, and/or cervix. COMPARISON: US OB /MATERNAL DETAIL 12/03/2022 1:52 PM FINDINGS: Gestation: Single live intrauterine gestation. See below. Yolk sac measures 4.6 mm. heart rate: 114 bpm BIOMETRY: Gestational age (AUA): 6 w 1 d based on crown-rump length measurement. Estimated due date (AUA): 12/23/2024 [place] rump length (CRL): 4.17 mm. EGA (CRL) is 6 w 1 d MATERNAL: Right ovary/adnexa: Right ovary measures 3.77 cm x 2.6 cm x 2.18 cm. Right ovarian volume is 11.19 mL. Within the right ovary there is an isoechoic 19 x 21 x 17 mm structure representing corpus luteum cyst of . Left ovary/adnexa: Left ovary measures 2.46 cm x 1.88 cm x 1.29 cm. Left ovarian volume is 3.12 mL. There is a small amount of free pelvic fluid noted in the cul-de-sac. IMPRESSION: Single live intrauterine gestation as described. Estimated gestational age 6 weeks 1 day. Estimated date of delivery 12/23/2024.
[2024-04-30 11:20] LABS: Appearance,Urine Clear (Clear); Bilirubin,Urine Negative (Negative); Blood, Urine Negative (Negative); Color,Urine Yellow (Yellow); Glucose,Urine (UA) Negative (Negative); Ketones,Urine >=160 (Negative); Nitrate,Urine Negative (Negative); PH,Urine 5.5 (5.0-8.5); Protein,Urine Trace (Negative); Urobilinogen,Urine 0.2 EU/dl (0.2)
[2024-04-30 11:21] LABS: Bacteria,Urine 1+ /lpf; Leukocyte Esterase,Urine Negative (Negative)
--- NOTE | 2024-04-30 11:48 | PC.NURSE ---
pt taken to radiology for transvag US
--- NOTE | 2024-04-30 13:01 | PC.NURSE ---
I notified Jose A in lab that added a type and screen to the pts labs.
[2024-04-30 13:19] LABS: HIV Combo NEGATIVE (Negative)
[2024-04-30 13:27] LABS: Hepatitis C Ab Qual. W/ RFX NEGATIVE (Negative)
--- NOTE | 2024-04-30 13:55 | PC.NURSE ---
I rounded on the pt and updated her on her blood type and the plan of care. no new complaints. no needs voiced. call hickman in reach.
== END 2024-04-30 14:02 | disposition home or self-care (01) ==
PROVIDERS: Emergency Provider Student in an Organized Health Care Education/Training Program; PCP Nurse Practitioner
DX: O23.90 Unspecified genitourinary tract infection in pregnancy, unspecified trimester (principal); O21.9 Vomiting of pregnancy, unspecified; Z3A.01 Less than 8 weeks gestation of pregnancy
CPT/HCPCS: 36415; 76817; 80053; 81001; 83690; 84702; 85025; 86803; 86900; 86901; 87389; 96361; 96374; 99284; J2765; J7120

== ENCOUNTER 2024-05-01 09:44 | Emergency (ER) | payer OTHER, SELFPAY ==
[2024-05-01 09:45] VITALS: BP 130/90; PULSE 109; RESP 16; TEMP 36.8; O2SAT 99; BMI 25.8
--- NOTE | 2024-05-01 10:10 | PC.NURSE ---
Dr Astudillo at bedside. Urine sent to lab
--- NOTE | 2024-05-01 10:47 | HMH.EDGENADL ---
Discharge Plan Disposition Patient Disposition: Home, Self-Care Condition: Good Prescriptions Prescriptions: No Action Classic 28 mg iron- 800 mcg tablet 1 tab PO DAILY metoclopramide HCl 5 mg tablet 5 mg PO DAILY Qty: 30 0RF cefadroxil 1 gram tablet 1,000 mg PO BID 5 Days Qty: 10 0RF Referrals Follow up/Referrals: Shayna Guy APRN [Primary Care Provider] - See instructions Activity Restrictions/Add. Instructions Additional Instructions/Restrictions: You were evaluated in the emergency department today. It is common to have vaginal bleeding in the first trimester of . It can be completely normal, but heavy bleeding, painful bleeding, or passage of large clots can be signs of more serious problems, such as miscarriage or ectopic . Ectopic was ruled out on ultrasound yesterday. I recommend pelvic rest, which means no insertion of tampons, avoid sexual intercourse, avoid douching, and avoid vaginal insertion of any objects for 1 week or until you have been cleared by your OB. I recommend rest, so we have provided you with a work excuse. Avoid heavy lifting or strenuous activity until cleared by your OB. Please call your OB to help arrange very close follow-up for this. Return to the emergency department if you experience new or concerning symptoms, such as significant worsening of bleeding beyond that of a normal period, severe abdominal pain, lightheadedness, or passing out. Clinical Impressions Clinical Impression: Vaginal bleeding affecting early Stand Alone Forms Stand Alone Forms: Work/School Release Instructions Patient Instructions: DI for Vaginal Bleeding During , Early Bleeding Print Language Print Language: Bengali Discharge ED Provider: Izabella Astudillo General Adult HPI General Chief complaint: Vaginal Bleeding Stated complaint: 6 weeks , heavy bleeding Time Seen by Provider: 05/01/24 10:03 Mode of Arrival: Family Vehicle Source of Information: Patient and Medical Record Description of Symptoms (Recalled from ER Triage Doc. by RN): Pt presents to ER after awaking to a small amount of vaginal bleeding and a small clot. States she was seen yesterday for n/v with . States she has a hx of hyperemesis gravidarum. She is , her 1st was afull term vaginal delivery. States the bleeding is now a faint pink when she wipes. Denies any pain or cramping. Per TVUS yesterday, she has a live IUP. She is B+ per [facility] Lab. States she was dx with a UTI yesterday but has not started the ABX yet. History of Present Illness HPI narrative: This patient is a 18-year-old G2, P1 at estimated 6 weeks gestational age presenting to the emergency department for evaluation with concern for vaginal bleeding. Patient was here yesterday for other concerns for dehydration in the setting of hyperemesis gravidarum, and she had a transvaginal ultrasound at that time that was reassuring. I reviewed records and noted her blood type is B+. She states that she woke up this morning with a small amount of blood on her underwear. She also passed a very small clot. Now she is only having very light spotting, but she is concerned with the amount of blood that she had woken up to. It was not as much as a normal period. She denies any significant abdominal pain. No other concerns or complaints noted at this time. Related Data Home Medications ?Medication ?Instructions ?Recorded ?Confirmed vits no.126-ferrous fum 1 tab PO DAILY 11/12/22 05/01/24 28 mg iron-folic acid 800 mcg tablet (Classic ) Previous Rx's ?Medication ?Instructions ?Recorded cefadroxil 1 gram tablet 1,000 mg PO BID 5 days #10 tabs 04/30/24 metoclopramide HCl 5 mg tablet 5 mg PO DAILY #30 tabs 04/30/24 Allergies Allergy/AdvReac Type Severity Reaction Status Date / Time No Known Allergies Allergy Verified 04/30/24 11:00 [facility] Disclaimer: The information contained in this section may have been updated after the patient was seen, as this information can be updated by other users. Medical History 38 weeks gestation of Gestational hypertension Elevated blood pressure reading Nausea and vomiting during Migraine Dysuria Anxiety Surgical History Status post vaginal delivery History of tonsillectomy History of excision of pilonidal cyst Family History Other Mitral valve prolapse Social History Smoking Status: Never smoker alcohol intake: never substance use type: denies use current occupational status: unemployed Travel in the last 8 weeks: None Have you lived/traveled outside US in past 30 days?: No Contact w/someone who lives/traveled outside US past 30 days?: No Exposure to someone with infectious disease in past 14 days?: No Do you have a fever (greater than 100.4 F or 38 C)?: No Have you tested positive for COVID-19: No Exposed to someone with COVID-19 in past 14 days?: No Do you have a sore throat?: No Do you have a cough?: No Do you have any weakness?: No Do you have any diarrhea?: No Are you experiencing any unusual bleeding?: Yes Do you have any muscle aches/pain?: No Do you have any abdominal pain?: No Are you experiencing loss of taste or smell?: No Other Medical History Have you received the Flu Vaccine for this season: No Have you received the Pneumonia Vaccine: No ROS Obtained: Yes All systems reviewed & no additional complaints except as documented Physical Exam General General appearance: alert and in no apparent distress Head Head exam: atraumatic and normocephalic Eye Eye exam: Present normal appearance, PERRL and EOMI ENT ENT exam: Present normal exam, normal oropharynx, mucous membranes moist and normal external ear exam Neck Neck exam: Present normal inspection, full ROM and trachea midline; Absent tenderness Chest Chest inspection: Present normal inspection and symmetric chest wall rise; Absent tenderness Respiratory Respiratory exam: Present normal lung sounds bilaterally; Absent respiratory distress, wheezes, stridor or accessory muscle use Cardiovascular Cardiovascular exam: Present regular rate and normal rhythm Abdominal Exam Abdominal exam: Present soft; Absent distention, tenderness or guarding Extremities Exam Extremities exam: Present normal inspection, full ROM and normal capillary refill; Absent tenderness or edema Back Exam Back exam: Present normal inspection and full ROM; Absent tenderness Neurological Exam Neurological exam: Present alert, oriented X3, CN II-XII intact and normal gait; Absent motor sensory deficit Psychiatric Psychiatric exam: Present normal affect and normal mood Skin Skin exam: Present warm and dry Medical Decision Making Medical Records Medical records reviewed: Yes I reviewed the patient's medical records. Screening: Per USPSTF and CDC recommendations, given the prevalence of disease in our region, it is our hospital?s policy to screen for HIV and viral Hepatitis for all patients aged 18 and over and those with ongoing risk factors. Victorino Inquiry Pt receiving controlled substance: No Vital Signs: 05/01/24 09:45 Temperature 98.2 F Temperature Source Oral Pulse Rate [Right] 109 H Respiratory Rate 16 Blood Pressure [Right Arm] 130/90 Blood Pressure Mean [Right Arm] 103 Blood Pressure Source [Right Arm] Automatic Cuff 02 Sat by Pulse Oximetry 99 Oxygen Delivery Method Room Air Lab Data Lab results reviewed: Yes I reviewed the patient's lab results. Orders (Tests/Meds): ORDERS Category Date Time Status POCUS Point of Care (ER Only) Stat Exams 05/01/24 10:13 Ordered Medical Decision Narrative: In summary, this patient is a 18-year-old female presenting to the Emergency Department for evaluation of vaginal bleeding in early . Differential diagnoses considered include but are not limited to irritation from transvaginal ultrasound yesterday, subchorionic hemorrhage, threatened , missed , implantation bleeding. Ruling out the most morbid conditions drove assessment. I reviewed patient's past medical records and noted evaluation yesterday with diagnosis of asymptomatic bacteriuria. She was prescribed medication for this, which she states she has picked up. She had a reassuring ultrasound with an intrauterine measuring 6 weeks 1 day. Blood type is be positive. On exam, the patient is well-appearing with benign abdominal exam and reassuring vital signs on cardiac telemetry. Workup included bedside [id number] transabdominal ultrasound. 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 I feel this moment bleeding could be related to the transvaginal ultrasound that she had causing some irritation. Bedside [id number] ultrasound was obtained which demonstrated intrauterine . I am having a difficult time with visualizing cardiac activity given very early in with poor quality ultrasound, but I do see intrauterine without significant pelvic free fluid. At this time, I feel the patient is appropriate for discharge home. It is likely that her vaginal bleeding could be related to the recent ultrasound that she had causing some irritation. She has had an ultrasound confirming intrauterine , so I am not concerned about ectopic at this time. Blood type is B+ so no indication for RhoGAM. Ultimately, I feel that she is appropriate for discharge home with instructions for pelvic rest and close follow-up with gynecology. Strict return precautions were given. Procedures Limited Ultrasound Findings:: Limited OB ultrasound Indication: Intrauterine , no significant pelvic free fluid Identified structures: -Uterus -Left adnexa -Right adnexa -Pouch of Jarrett Findings: Uterus: Definitive IUP Cul de sac: Free fluid absent Impression: -IUP: Present -Ectopic : Absent -Free fluid: Absent Images were saved to permanent archive The study was technically adequate CPT Transabdominal: 42762-30 This study was performed by me, and I personally interpreted all images/videos. Based on my clinical judgement, these images were adequate and did not necessitate further imaging. Critical Care Critical Care Time Critical Care Time: No
[2024-05-01 10:48] VITALS: BP 128/88; PULSE 82; RESP 15; TEMP 36.5; O2SAT 99
== END 2024-05-01 10:55 | disposition home or self-care (01) ==
PROVIDERS: Emergency Provider Emergency Medicine; PCP Nurse Practitioner
DX: O20.9 Hemorrhage in early pregnancy, unspecified (principal); Z3A.01 Less than 8 weeks gestation of pregnancy
CPT/HCPCS: 99283

== ENCOUNTER 2024-05-05 15:45 | Observation (INO) | payer OTHER, SELFPAY ==
[2024-05-05 16:01] VITALS: RESP 20; TEMP 36.7; O2SAT 100; BMI 25.2
[2024-05-05] MEDS: MAGNESIUM SULFATE 2 GM, THIAMINE HCL 100 MG, MVI, ADULT NO.1 WITH VIT K 10 ML in LACTAT... IV (16:23)
[2024-05-05] MEDS: ONDANSETRON 4MG/2ML VIAL 4 MG IV ×2 (16:27→21:58)
[2024-05-05] MEDS: METOCLOPRAMIDE HCL 10MG/2ML VIAL 10 MG IVP ×2 (16:27→23:59)
--- NOTE | 2024-05-05 16:49 | P.HP_ITS ---
OB - H&P: HPI Antepartum History of Present Illness Chief complaint: Nausea and vomiting History of present illness: Ms Gertrudis Cordoba is a 18 yo at 7w0d who presents to [facility] L&D from the office for hyperemesis gravidarum. She hasn't been able to keep anything down. She has tried zofran, reglan, phenergan suppositories, Benadryl, B6, small meals, roshan, mint. She reports 12 lb weight loss in 5 days on 05/02/24. She admits to fatigue/weakness and lightheadedness. Everything she takes orally comes right up and the Phenergan suppositories make her too tired. Documented 4 lb weight loss from 04/30 to today, 05/05. History of Present Criteria for establishing EDC:: LMP confirmed by 1st trimester US Ultrasounds: normal 1st trimester US [facility] Disclaimer: The information contained in this section may have been updated after the patient was seen, as this information can be updated by other users. Medical History (Updated 05/05/24 @ 16:52 by Jackie Mcmullen DO) 7 weeks gestation of History of gestational hypertension Hyperemesis gravidarum 38 weeks gestation of Gestational hypertension Elevated blood pressure reading Nausea and vomiting during Migraine Dysuria Anxiety Surgical History Status post vaginal delivery History of tonsillectomy History of excision of pilonidal cyst Family History Other Mitral valve prolapse Social History Smoking Status: Never smoker alcohol intake: never substance use type: denies use current occupational status: other Travel in the last 8 weeks: None Other Medical History Have you received the Flu Vaccine for this season: No Have you received the Pneumonia Vaccine: No Review of Systems Review of Systems Review of systems:: pertinent systems reviewed and negative unless documented below Constitutional Constitutional: Reports weakness ENT Ears, Nose, Mouth, and Throat: Reports vertigo *Gastrointestinal Gastrointestinal: Reports nausea and Reports vomiting *Neurologic Neurologic: Reports vertigo and Reports weakness Meds Home Medications and Allergies Home Medications ?Medication ?Instructions ?Recorded ?Confirmed ?Type vits no.126-ferrous fum 1 tab PO DAILY 11/12/22 05/05/24 History 28 mg iron-folic acid 800 mcg tablet (Classic ) metoclopramide HCl 5 mg tablet 5 mg PO DAILY #30 tabs 04/30/24 05/05/24 Rx promethazine 25 mg rectal 25 mg TN Q6H PRN nausea and 05/01/24 05/05/24 Rx suppository vomiting #12 ea New Prescriptions to Start Prescriptions: Allergies Allergy/AdvReac Type Severity Reaction Status Date / Time No Known Allergies Allergy Verified 05/05/24 14:41 OB - H&P: Exam Physical Exam Vital signs: Temp Resp Pulse Ox O2 Del Method 98.0 F 20 100 Room Air 05/05/24 16:01 05/05/24 16:01 05/05/24 16:01 05/05/24 16:01 Constitutional no acute distress and cooperative Routine HEENT Exam Head: Present normocephalic and atraumatic Eye: Absent scleral injection or conjunctivae pink ENT: Present mucous membranes moist Routine Neck Exam Present full ROM Routine Respiratory Exam Present CTA bilaterally and normal respiratory effort Routine Cardiovascular Exam Present RRR Routine Abdominal Exam Present soft; Absent tenderness or distended Routine Rectal Exam Patient deferred: visual exam Routine Exam Patient deferred: external exam Routine Extremities Exam Present full ROM; Absent edema or calf tenderness Routine Neurological Exam Present alert, moving all extremities and normal speech Routine Psychiatric Exam Present normal affect and cooperative OB - A/P Antepartum (1) Hyperemesis gravidarum: Status: Acute (2) 7 weeks gestation of : Status: Acute Additional Plan Additional Information:: Admit to L&D for HG Banana bag CBC, CMP and labs to be drawn on L&D IV zofran 4 mg q 6 hours and IV Reglan 10 mg q 8 hours Sips and bites of crackers as tolerated. Discussed small sip and a bite of cracker every 15 minutes will be starting goal Close monitoring
[2024-05-05 17:57] LABS: Albumin Level 4.4 g/dl (3.5-5.0); Chloride 106 mmol/L (98-107); Sodium 139 mmol/L (136-145)
[2024-05-05 17:58] LABS: Potassium 3.5 mmoL/L (3.5-5.1)
[2024-05-05 18:00] LABS: Alanine Aminotransferase 23 U/L (12-78); Anion Gap 16.5 mEq/L (5-15); Aspartate Amino Transferase 24 U/L (14-36); Blood Urea Nitrogen 7 mg/dl (7-17); Carbon Dioxide 20 mmol/L (22.0-30.0); Creatinine Clearance Estimated 167 mL/min (50-200); Estimated Glomerular Filt Rate 127 ml/min (>60); GFR (African American) 154 ML/MIN (>60)
[2024-05-05 18:01] LABS: Albumin/Globulin Ratio 1.8 (1.1-1.8); Alkaline Phosphatase 63 U/L (38-126); Bilirubin,Total 0.9 mg/dl (0.2-1.3); Calcium 9.3 mg/dl (8.4-10.2); Globulin 2.5 g/dL (1.3-3.2); Glucose 81 mg/dl (74-100); Total Protein,Serum 6.9 g/dl (6.3-8.2)
[2024-05-05] MEDS: PANTOPRAZOLE 40MG VIAL 40 MG IV (19:52)
[2024-05-05] MEDS: LACTATED RINGERS 1000ML 1,000 ML 999 ML IV (19:52)
[2024-05-05] MEDS: LACTATED RINGERS 1000ML 1,000 ML 75 ML IV (20:56)
[2024-05-06] MEDS: ONDANSETRON 4MG/2ML VIAL 4 MG IV ×2 (04:03→11:41)
[2024-05-06 08:00] VITALS: BP 108/75; PULSE 96; RESP 18; TEMP 36.6; O2SAT 100
[2024-05-06] MEDS: METOCLOPRAMIDE HCL 10MG/2ML VIAL 10 MG IVP (08:14)
[2024-05-06] MEDS: PANTOPRAZOLE 40MG VIAL 40 MG IV (08:14)
--- NOTE | 2024-05-06 08:55 | HMH.PHAINT1 ---
Pharmacy Intervention Comments: MEDICATION RECONCILIATION COMPLETED ON PATIENT USING EXTERNAL FILL HISTORY FROM PHARMACY. -[facility], [place]
--- NOTE | 2024-05-06 11:18 | EXP.DC.SUM ---
General Admission date:: 05/05/24 Discharge date: 05/06/24 HPI HPI HPI: Feeling well this morning. She is tolerating regular diet. No nausea or vomiting. Hospital Course Hospital Course Hospital Course: Ms Gertrudis Cordoba is a 18 yo at 7w0d who presents to [facility] L&D from the office for hyperemesis gravidarum. She hasn't been able to keep anything down. She has tried zofran, reglan, phenergan suppositories, Benadryl, B6, small meals, roshan, mint. She reports 12 lb weight loss in 5 days on 05/02/24. She admits to fatigue/weakness and lightheadedness. Everything she takes orally comes right up and the Phenergan suppositories make her too tired. Documented 4 lb weight loss from 04/30 to today, 05/05. She was admitted for Banana bag, IV fluids, labs and medication. Labs within normal limits. She was started on Protonix daily, scheduled zofran 4 mg q 6 hours and Reglan 10 mg q 8 hours. She was feeling well and tolerating regular diet. She was discharged home with prescriptions for Protonix, zofran and reglan. She was instructed to follow-up in the office in 1 week or sooner if needed. Exam Data for Last 24 hours Vital signs and Labs for Last 24 Hours: Temp Resp Pulse Ox O2 Del Method 98.0 F 20 100 Room Air 05/05/24 16:01 05/05/24 16:01 05/05/24 16:01 05/05/24 16:01 Laboratory Results - last 24 hr 05/05/24 17:40: Sodium 139, Potassium 3.5, Chloride 106, Carbon Dioxide 20 L, Anion Gap 16.5 H, BUN 7, Creatinine 0.60, Estimated Creat Clear 167, Estimated GFR 127, Est GFR ( Amer) 154, Glucose 81, Calcium 9.3, Total Bilirubin 0.9, AST 24, ALT 23, Alkaline Phosphatase 63, Total Protein 6.9, Albumin 4.4, Globulin 2.5, Albumin/Globulin Ratio 1.8 I & O for Last 24 hours: Intake & Output 05/03/24 05/04/24 05/05/24 05/06/24 23:59 23:59 23:59 23:59 Weight 156 lb Constitutional Constitutional: no acute distress and cooperative *Routine HEENT Exam Head: Present normocephalic and atraumatic Eye: Absent conjunctivae pink ENT: Present mucous membranes moist *Routine Neck Exam Neck: Present full ROM *Routine Respiratory Exam Respiratory: Present CTA bilaterally and normal respiratory effort *Routine Cardiovascular Exam Cardiovascular: Present RRR *Routine Abdominal Exam Abdominal: Present soft and normoactive bowel sounds; Absent tenderness *Routine Rectal Exam Patient deferred: visual exam *Routine Exam Patient deferred: external exam *Routine Extremities Exam Extremities: Present full ROM; Absent edema or calf tenderness *Routine Neurological Exam Neurological: Present alert, moving all extremities and normal speech Routine Psychiatric Exam Psychiatric: Present normal affect and cooperative Results Data Completed and Pending Labs on day of discharge: Labs from last 24 hours 05/05/24 17:40 Sodium 139 Potassium 3.5 Chloride 106 Carbon Dioxide 20 L Anion Gap 16.5 H BUN 7 Creatinine 0.60 Estimated Creat Clear 167 Estimated GFR 127 Est GFR ( Amer) 154 Glucose 81 Calcium 9.3 Total Bilirubin 0.9 AST 24 ALT 23 Alkaline Phosphatase 63 Total Protein 6.9 Albumin 4.4 Globulin 2.5 Albumin/Globulin Ratio 1.8 DS: Diagnosis Discharge Diagnosis (1) Hyperemesis gravidarum: Status: Acute Code(s): O21.0 - Mild hyperemesis gravidarum (2) 7 weeks gestation of : Status: Acute Code(s): Z3A.01 - Less than 8 weeks gestation of Meds Home Medications and Allergies Home Medications ?Medication ?Instructions ?Recorded ?Confirmed ?Type vits no.126-ferrous fum 1 tab PO DAILY 11/12/22 05/06/24 History 28 mg iron-folic acid 800 mcg tablet (Classic ) metoclopramide HCl 10 mg tablet 10 mg PO Q8H nausea and vomiting 05/06/24 Rx (Reglan) #30 tabs ondansetron 4 mg disintegrating 4 mg PO Q6H PRN nausea and 05/06/24 Rx tablet vomiting #30 tabs pantoprazole 40 mg tablet,delayed 40 mg PO DAILY #30 tabs 05/06/24 Rx release (Protonix) New Prescriptions to Start Prescriptions: metoclopramide HCl [Reglan] Jackie Mcmullen ondansetron Jackie Mcmullen pantoprazole [Protonix] Jackie Mcmullen Allergies Allergy/AdvReac Type Severity Reaction Status Date / Time No Known Allergies Allergy Verified 05/05/24 14:41 Discharge Plan Disposition Patient Disposition: Home, Self-Care Condition: Good Follow up Plan Follow up with: Jackie Mcmullen DO [Staff Physician] - 1 week Prescriptions/Medication Reconciliation: New pantoprazole [Protonix] 40 mg tablet,delayed release (DR/EC) 40 mg PO DAILY Qty: 30 2RF ondansetron 4 mg tablet,disintegrating 4 mg PO Q6H PRN (Reason: nausea and vomiting) Qty: 30 2RF metoclopramide HCl [Reglan] 10 mg tablet 10 mg PO Q8H Qty: 30 1RF Continued Classic 28 mg iron- 800 mcg tablet 1 tab PO DAILY Discontinued metoclopramide HCl 5 mg tablet 5 mg PO DAILY Qty: 30 0RF promethazine 25 mg suppository 25 mg [place] Q6HP PRN (Reason: nausea and vomiting) Problem Reconciliation Problems Reviewed?: Yes Patient Discharge Instructions ACTIVITY: Limited activity DIET: continue same diet and regular diet Print Language: Tamazight Providers Primary Care Provider: Shayna Guy Admit Provider: Jackie Mcmullen Attending Provider: Jackie Mcmullen
== END 2024-05-06 11:49 | disposition home or self-care (01) ==
LOC: OBOUT 15:45 → OB 15:45
PROVIDERS: Admitting Provider Obstetrics & Gynecology; PCP Nurse Practitioner; Visit Provider Obstetrics & Gynecology
DX: O21.0 Mild hyperemesis gravidarum (principal); Z3A.01 Less than 8 weeks gestation of pregnancy
CPT/HCPCS: 36415; 80053; G0378; J2405; J2765; J3411; J7120

== ENCOUNTER 2024-05-05 16:20 | Outpatient (CLI) | payer OTHER, SELFPAY ==
[2024-05-08 21:53] LABS: Neisseria gonorrhoeae, NAA Negative (Negative)
== END 2024-05-05 23:59 | disposition home or self-care (01) ==
LOC: LAB.DROPOF 16:20
PROVIDERS: PCP Obstetrics & Gynecology; Visit Provider Obstetrics & Gynecology
DX: Z34.01 Encounter for supervision of normal first pregnancy, first trimester (principal); Z3A.01 Less than 8 weeks gestation of pregnancy
CPT/HCPCS: 87491; 87591

== ENCOUNTER 2024-05-16 12:48 | Outpatient (CLI) | payer OTHER, SELFPAY ==
--- NOTE | 2024-05-16 13:00 | US_ITS ---
PROCEDURE: US OB <= 14 WEEKS FETUS CLINICAL INDICATION: JORDAN Vaginal bleeding in early COMPARISON: US US OB TRANSVAGINAL from 04/30/2024 FINDINGS: Transvaginal sonographic images of the pelvis were obtained. The uterus is retroverted and retroflexed. From her last menstrual period she is 8weeks 4days. An intrauterine gestational sac is present with a pole with a crown-rump length of 1.98cm This correlates to a gestational age of 8weeks 4days. KENIA 12/22/2024 heart tones are present with an FHR of 188bpm. Yolk sac is noted. The yolk sac measures 7.0mm. The right ovary is seen and appears normal. There appears to be a corpus luteum in the right ovary. The left ovary is seen and appears normal. There is a small amount of fluid in the cul-de-sac. IMPRESSION: 1. Viable embryo within the uterine cavity. heart rate activity is seen. 2. There has been appropriate interval growth and the embryo measures 8 weeks 4 days. KENIA will remain 12/22/2024. 3. No obvious cause for her bleeding. No subchorionic hemorrhage seen. 4. There appears to be a corpus luteum in the right ovary. 5. There is a small amount of fluid in the cul-de-sac. Dictated by: Mikey Villasenor MD 05/16/2024 14:08 Mikey Villasenor MD in [place] 05/16/2024 14:08
== END 2024-05-16 23:59 | disposition home or self-care (01) ==
LOC: RAD 12:49
PROVIDERS: PCP Nurse Practitioner; Visit Provider Obstetrics & Gynecology
DX: O20.9 Hemorrhage in early pregnancy, unspecified (principal); Z3A.08 8 weeks gestation of pregnancy
CPT/HCPCS: 76801

== ENCOUNTER 2024-06-13 11:38 | Outpatient (CLI) | payer OTHER, SELFPAY ==
[2024-06-13 12:18] LABS: Basophils % 0.3 % (0.1-2.0); Eosinophils # 0.1 Kmm3 (0.0-0.4); Eosinophils % 1.6 % (0.1-12.0); Hematocrit 35.9 % (37.0-47.0); Hemoglobin 12.5 g/dL (12.2-16.2); Lymphocytes # 1.5 K/mm3 (0.7-4.5); Lymphocytes % 19.2 % (10-50); Mean Corpuscular HGB Conc 34.8 g/dL (31.8-35.4); Mean Corpuscular Volume 86.1 fl (81-99); Mean Platelet Volume 11.1 fl (7.4-10.4); Monocytes # 0.4 K/mm3 (0.1-1.0); Monocytes % 5.5 % (1.7-9.3); Neutrophils # 5.6 K/mm3 (1.8-7.8); Neutrophils % 73.1 % (37.0-80.0); Nucleated Red Blood Cells # 0 10^3/uL; Nucleated Red Blood Cells % 0 %; Platelet Count 234 K/mm3 (142-424); Red Blood Count 4.17 M/mm3 (4.20-5.40); Red Cell Distribution Width-SD 40.3 fL; White Blood Count 7.6 K/mm3 (4.5-13.0)
[2024-06-14 07:08] LABS: RPR W/RFX Titers Nonreactive (Nonreactive)
[2024-06-14 07:10] LABS: Hepatitis B Surface Antigen Negative (Negative)
== END 2024-06-13 23:59 | disposition home or self-care (01) ==
LOC: LAB 11:39
PROVIDERS: PCP Nurse Practitioner; Visit Provider Obstetrics & Gynecology
DX: Z34.01 Encounter for supervision of normal first pregnancy, first trimester (principal)
CPT/HCPCS: 36415; 85025; 86592; 86762; 86850; 87340

== ENCOUNTER 2024-08-28 13:27 | Outpatient (CLI) | payer OTHER, SELFPAY ==
--- NOTE | 2024-08-28 13:45 | US_ITS ---
PROCEDURE: US OB /MATERNAL DETAIL CLINICAL INDICATION: need in 3-4 weeks; 20 week anatomy scan COMPARISON: US US OB <= 14 WEEKS FETUS from 05/16/2024 FINDINGS: Transabdominal sonographic images of the pelvis were obtained. From her established due date she is 23 weeks 3 days. Single viable intrauterine gestation. Cephalic position. Placenta: Posteriorplacenta grade 1. There is an average amount of fluid. The cervix appears satisfactory. Closed and measuring 2.98 cm in length. Complete survey performed and was unremarkable on the submitted images as in PACS. No discrete anomalies identified on survey imaging by technologist. Active fetus. Three-vessel cord with satisfactory umbilical cord insertion. 4- chamber heart noted. Situs, aortic arch, LVOT, RVOT, three-vessel view appear normal. Survey of brain & ventricles Unremarkable. Cerebellum, thalamus, choroid plexus, cisterna magna appear normal. Face and neck survey unremarkable. Profile, nasion, lips and nose appeared normal. Diaphragm and chest views unremarkable. Abdomen: Both kidneys noted and unremarkable. Stomach and bladder noted and satisfactory. Spine: Survey of the spine satisfactory with no anomalies identified nor imaged. Cervical, thoracic, lower spine appear normal. Both arms and legs noted. Amniotic Fluid: Adequate. MVP 5.10 cm Measurements: Average ultrasound age 24weeks 3days. Estimated due date by ultrasound age 1012/15/2024. Estimated weight 636g BPD = 25weeks 3days HC = 24weeks 5days AC = 24weeks 1day FL = 23weeks 1day Growth Percentile= 62 Heart Rate = 149bpm Cerebellum = 21weeks 5days Humerus = 23weeks 4days HC/AC is 1.16 FL/BPD is 0.65 FL/AC is 0.21 IMPRESSION: 1. Viable fetus in the cephalic presentation with a posterior placenta grade 1. 2. The fluid is within normal limits with an MVP 5.10 cm. 3. Anatomical scan appears normal. 4. biometry is consistent with the dates. Dictated by: Mikey Villasenor MD 08/28/2024 16:34 Mikey Villasenor MD in [place] 08/28/2024 16:34
== END 2024-08-28 23:59 | disposition home or self-care (01) ==
LOC: RAD 13:27
PROVIDERS: PCP Nurse Practitioner; Visit Provider Obstetrics & Gynecology
DX: O21.0 Mild hyperemesis gravidarum (principal); Z87.59 Personal history of other complications of pregnancy, childbirth and the puerperium; Z3A.23 23 weeks gestation of pregnancy
CPT/HCPCS: 76811

== ENCOUNTER 2024-09-21 17:17 | Outpatient (CLI) | payer OTHER, SELFPAY ==
[2024-09-21 17:48] VITALS: BMI 26.4
== END 2024-09-21 18:21 | disposition home or self-care (01) ==
LOC: OBOUT 17:18 → OB 17:19
PROVIDERS: PCP Nurse Practitioner; Visit Provider Nurse Practitioner Obstetrics & Gynecology
DX: O46.92 Antepartum hemorrhage, unspecified, second trimester (principal); Z3A.26 26 weeks gestation of pregnancy
CPT/HCPCS: 59025; 99212; G0463

== ENCOUNTER 2024-10-02 12:51 | Outpatient (CLI) | payer OTHER, SELFPAY ==
[2024-10-02 14:17] LABS: Hematocrit 33.1 % (37.0-47.0); Hemoglobin 11.1 g/dL (12.2-16.2); Immature Granulocytes % 0.8 %; Mean Corpuscular HGB Conc 33.5 g/dL (31.8-35.4); Mean Corpuscular Hemoglobin 29.1 pg (27.0-31.2); Mean Corpuscular Volume 86.6 fl (81-99); Nucleated Red Blood Cells % 0 %; Platelet Count 256 K/mm3 (142-424); Red Blood Count 3.82 M/mm3 (4.20-5.40); Red Cell Distribution Width-SD 39.8 fL; White Blood Count 8.4 K/mm3 (4.8-10.8)
[2024-10-02 14:25] LABS: Glucose 1 Hour 97 mg/dL (74-100)
[2024-10-03 15:32] LABS: RPR W/RFX Titers Nonreactive (Nonreactive)
== END 2024-10-02 23:59 | disposition home or self-care (01) ==
LOC: LAB 12:51
PROVIDERS: PCP Nurse Practitioner; Visit Provider Obstetrics & Gynecology
DX: Z87.59 Personal history of other complications of pregnancy, childbirth and the puerperium (principal)
CPT/HCPCS: 36415; 82947; 85025; 86592

== ENCOUNTER 2024-11-20 16:00 | Outpatient (CLI) | payer OTHER, SELFPAY | END 2024-11-20 23:59 | disposition home or self-care (01) | LOC: LAB.DROPOF 11-21 01:40 | PROVIDERS: PCP Obstetrics & Gynecology; Visit Provider Obstetrics & Gynecology | DX: Z87.59 Personal history of other complications of pregnancy, childbirth and the puerperium (principal) | CPT/HCPCS: 87086 ==

== ENCOUNTER 2024-11-21 15:29 | Outpatient (CLI) | payer OTHER, SELFPAY ==
--- NOTE | 2024-11-21 15:45 | US_ITS ---
PROCEDURE: US OB FOLLOW UP CLINICAL INDICATION: growth for SGA COMPARISON: US US OB TRANSVAGINAL from 04/30/2024 US US OB <= 14 WEEKS FETUS from 05/16/2024 US US OB /MATERNAL DETAIL from 08/28/2024 FINDINGS: Transabdominal sonographic images of the pelvis were obtained. The following parameters are obtained: From her established due date she is 35weeks 4days Viable fetus in the cephalic presentation with a posterior placenta grade 2. Average ultrasound age 35 weeks 5 days Estimated weight 2571 grams, 5 lb 11 oz heart rate: 143bpm bpm. BPD: 37weeks 0 days, 88 percentile HC: 36weeks 4days, 39 percentile AC: 35weeks 2day, 47 percentile FL: 33weeks 4days, 5th percentile HC/AC: 1.03 FL/BPD: 0.71 FL/AC: 0.21 Growth percentile: 33 Amniotic fluid: MVP 4.32 cm No obvious anomalies evident. profile seen, stomach, bladder, kidneys, three-vessel cord, four chamber heart appear normal. IMPRESSION: 1. Viable fetus in the cephalic presentation with a posterior placenta grade 2. 2. The fluid is within normal limits with an MVP 4.32 cm. 3. There has been good interval growth with the fetus currently 33rd percentile. 4. Limited anatomical scan appears normal. Dictated by: Mikey Villasenor MD 11/21/2024 16:56 Mikey Villasenor MD in [place] 11/21/2024 16:56
== END 2024-11-21 23:59 | disposition home or self-care (01) ==
LOC: RAD 15:30
PROVIDERS: PCP Nurse Practitioner; Visit Provider Obstetrics & Gynecology
DX: O36.5930 Maternal care for other known or suspected poor fetal growth, third trimester, not applicable or unspecified (principal); Z3A.35 35 weeks gestation of pregnancy
CPT/HCPCS: 76816

== ENCOUNTER 2024-11-27 11:17 | Outpatient (CLI) | payer OTHER, SELFPAY | END 2024-11-27 23:59 | disposition home or self-care (01) | LOC: LAB.DROPOF 11-28 11:17 | PROVIDERS: PCP Obstetrics & Gynecology; Visit Provider Obstetrics & Gynecology | DX: Z34.93 Encounter for supervision of normal pregnancy, unspecified, third trimester (principal); Z3A.00 Weeks of gestation of pregnancy not specified | CPT/HCPCS: 86403; 87086 ==

== ENCOUNTER → 2024-12-01 16:24 | Outpatient (CLI) | payer OTHER, SELFPAY | LOC: OBOUT 16:25 | PROVIDERS: PCP Nurse Practitioner; Visit Provider Obstetrics & Gynecology | DX: R69 Illness, unspecified (principal) ==

== ENCOUNTER 2024-12-01 16:52 | Outpatient (CLI) | payer OTHER, SELFPAY ==
[2024-12-01 16:54] VITALS: BMI 27.4
[2024-12-01 17:53] VITALS: BMI 27.4
[2024-12-01 18:07] LABS: Microscopic, Urine URINE MICROSCOPIC (MICROSCOPIC)
[2024-12-01 18:09] LABS: Hematocrit 31.4 % (37.0-47.0); Hemoglobin 10.7 g/dL (12.2-16.2); Immature Granulocytes % 1.2 %; Mean Corpuscular HGB Conc 34.1 g/dL (31.8-35.4); Mean Corpuscular Hemoglobin 28.9 pg (27.0-31.2); Mean Corpuscular Volume 84.9 fl (81-99); Nucleated Red Blood Cells % 0 %; Platelet Count 341 K/mm3 (142-424); Red Blood Count 3.70 M/mm3 (4.20-5.40); Red Cell Distribution Width-SD 39.8 fL; White Blood Count 12.3 K/mm3 (4.8-10.8)
[2024-12-01 18:11] LABS: Bilirubin,Urine Negative (Negative); Color,Urine YELLOW (Yellow); Glucose,Urine (UA) Negative (Negative); Ketones,Urine 1+ (Negative); PH,Urine 6.5 (5.0-8.5); Protein,Urine Negative (Negative); Specific Gravity, Urine 1.020 (1.005-1.030); Urobilinogen,Urine 1.0 EU/dl (0.2)
[2024-12-01 18:12] LABS: Leukocyte Esterase,Urine 2+ (Negative)
[2024-12-01 18:30] LABS: Alanine Aminotransferase 17 U/L (12-78); Albumin Level 3.7 g/dl (3.5-5.0); Albumin/Globulin Ratio 1.3 (1.1-1.8); Alkaline Phosphatase 163 U/L (38-126); Anion Gap 14.4 mEq/L (5-15); Aspartate Amino Transferase 25 U/L (14-36); Bilirubin,Total 0.4 mg/dl (0.2-1.3); Blood Urea Nitrogen 12 mg/dl (7-17); Calcium 9.0 mg/dl (8.4-10.2); Carbon Dioxide 21 mmol/L (22.0-30.0); Chloride 104 mmol/L (98-107); Creatinine Clearance Estimated 120 mL/min (50-200); Creatinine,Serum 0.90 mg/dl (0.52-1.04); Estimated Glomerular Filt Rate 79 ml/min (>60); GFR (African American) 96 ML/MIN (>60); Globulin 2.8 g/dL (1.3-3.2); Glucose 122 mg/dl (74-100); Potassium 3.4 mmoL/L (3.5-5.1); Sodium 136 mmol/L (136-145); Total Protein,Serum 6.5 g/dl (6.3-8.2); Uric Acid 4.6 mg/dl (2.5-6.2)
[2024-12-01 18:40] LABS: Bacteria,Urine 4+ /lpf; RBC,Urine 20-50 #/hpf (0-3); Squamous Epithelial Cell,Urine 50-100 #/hpf (0-5); WBC,Urine TNTC #/hpf (0-3)
[2024-12-01 18:41] LABS: Activated Partial Thrombo Time 24.7 seconds (22.8-30.6); Fibrinogen 641 mg/dL (229.9-363.5); INR 0.92 (0.9-1.1); Prothrombin Time 10.3 seconds (10.1-12.5)
== END 2024-12-01 19:30 | disposition home or self-care (01) ==
LOC: OBOUT 16:53 → OB 16:53
PROVIDERS: PCP Nurse Practitioner; Visit Provider Obstetrics & Gynecology
DX: Z34.83 Encounter for supervision of other normal pregnancy, third trimester (principal); Z3A.37 37 weeks gestation of pregnancy
CPT/HCPCS: 59025; 80053; 81001; 82570; 84156; 84550; 85025; 85384; 85610; 85730; 87086; 99212; G0463

== ENCOUNTER 2024-12-02 13:59 | Outpatient (CLI) | payer OTHER, SELFPAY ==
[2024-12-02 14:30] VITALS: BP 131/96; PULSE 106; RESP 18; TEMP 36.9; O2SAT 99; BMI 27.4
[2024-12-02 14:35] VITALS: BP 129/86
[2024-12-02 14:45] VITALS: BP 126/69
[2024-12-02 15:00] VITALS: BP 116/68
[2024-12-02 15:06] LABS: Microscopic, Urine URINE MICROSCOPIC (MICROSCOPIC)
[2024-12-02 15:08] LABS: Bilirubin,Urine Negative (Negative); Color,Urine YELLOW (Yellow); Glucose,Urine (UA) Negative (Negative); Ketones,Urine Negative (Negative); Leukocyte Esterase,Urine 2+ (Negative); PH,Urine 6.5 (5.0-8.5); Protein,Urine Negative (Negative); Specific Gravity, Urine 1.015 (1.005-1.030); Urobilinogen,Urine 1.0 EU/dl (0.2)
[2024-12-02 15:15] VITALS: BP 139/87
[2024-12-02 15:49] LABS: Bacteria,Urine 2+ /lpf
== END 2024-12-02 15:55 | disposition home or self-care (01) ==
LOC: OBOUT 14:01 → OB 14:05
PROVIDERS: PCP Nurse Practitioner; Visit Provider Obstetrics & Gynecology
DX: O13.3 Gestational [pregnancy-induced] hypertension without significant proteinuria, third trimester (principal); Z3A.37 37 weeks gestation of pregnancy
CPT/HCPCS: 59025; 81001; 99212; G0463

== ENCOUNTER 2024-12-06 04:48 | Inpatient (IN) | payer OTHER, SELFPAY ==
[2024-12-06 05:01] VITALS: BMI 27.2
[2024-12-06 05:10] VITALS: BP 136/101; PULSE 112; RESP 16; TEMP 36.7; O2SAT 98; BMI 27.2
[2024-12-06 05:41] VITALS: BP 124/65; PULSE 107
[2024-12-06 05:44] LABS: Microscopic, Urine URINE MICROSCOPIC (MICROSCOPIC)
[2024-12-06 05:47] LABS: Hematocrit 31.4 % (37.0-47.0); Hemoglobin 10.8 g/dL (12.2-16.2); Immature Granulocytes % 1.3 %; Mean Corpuscular HGB Conc 34.4 g/dL (31.8-35.4); Mean Corpuscular Hemoglobin 28.7 pg (27.0-31.2); Mean Corpuscular Volume 83.5 fl (81-99); Nucleated Red Blood Cells % 0 %; Platelet Count 380 K/mm3 (142-424); Red Blood Count 3.76 M/mm3 (4.20-5.40); Red Cell Distribution Width-SD 38.9 fL; White Blood Count 13.0 K/mm3 (4.8-10.8)
[2024-12-06 05:48] LABS: Bilirubin,Urine Negative (Negative); Color,Urine YELLOW (Yellow); Glucose,Urine (UA) Negative (Negative); Ketones,Urine Negative (Negative); Leukocyte Esterase,Urine TRACE (Negative); PH,Urine 6.5 (5.0-8.5); Protein,Urine Negative (Negative); Specific Gravity, Urine 1.010 (1.005-1.030); Urobilinogen,Urine 0.2 EU/dl (0.2)
[2024-12-06 05:51] LABS: Bacteria,Urine Trace /lpf; RBC,Urine Occasional #/hpf (0-3); Squamous Epithelial Cell,Urine Occasional #/hpf (0-5); WBC,Urine Occasional #/hpf (0-3)
[2024-12-06 05:52] LABS: Chloride 106 mmol/L (98-107); Sodium 137 mmol/L (136-145)
[2024-12-06 05:53] LABS: Potassium 3.7 mmoL/L (3.5-5.1)
[2024-12-06 05:55] LABS: Blood Urea Nitrogen 11 mg/dl (7-17); Creatinine Clearance Estimated 179 mL/min (50-200); Creatinine,Serum 0.60 mg/dl (0.52-1.04); Estimated Glomerular Filt Rate 126 ml/min (>60); GFR (African American) 153 ML/MIN (>60)
[2024-12-06 05:56] LABS: Anion Gap 12.7 mEq/L (5-15); Calcium 9.0 mg/dl (8.4-10.2); Carbon Dioxide 22 mmol/L (22.0-30.0); Glucose 100 mg/dl (74-100)
[2024-12-06 06:18] LABS: Activated Partial Thrombo Time 22.8 seconds (22.8-30.6); Fibrinogen 560 mg/dL (229.9-363.5); INR 0.88 (0.9-1.1); Prothrombin Time 9.9 seconds (10.1-12.5)
[2024-12-06] MEDS: DEXTROSE 5%-LACTATED RINGERS 1,000 ML 125 ML IV (06:25)
[2024-12-06] MEDS: OXYTOCIN/RINGERS LACTATE 30 UNITS/500 ML BAG IV (06:27)
[2024-12-06] MEDS: ONDANSETRON 4MG/2ML VIAL 4 MG IV (06:32)
[2024-12-06 08:12] VITALS: BP 144/95; PULSE 98; RESP 18; TEMP 36.7; O2SAT 99
--- NOTE | 2024-12-06 08:36 | P.HP_ITS ---
History of Present Illness *Admission Date: 12/06/24 *Reason for visit:: Labile hypertension, chronic hypertension, *History of present illness: She is a 19-year-old 2 para 1 at 37+5 weeks gestational age. She had a previous vaginal delivery. Over the last few weeks she had some elevated blood pressures. Laboratory investigations have been negative. Her pressures have been in the 140-150 range over 90-100 range. They seem to be intermittent. She does improve with bedrest. She has had an otherwise uncomplicated . As a result of this she is admitted for induction of labor. B positive blood Rubella immune GBS negative. [facility] Disclaimer: The information contained in this section may have been updated after the patient was seen, as this information can be updated by other users. Medical History (Updated 12/06/24 @ 08:39 by Mikey Villasenor MD) Gestational hypertension 7 weeks gestation of History of gestational hypertension Hyperemesis gravidarum 38 weeks gestation of Elevated blood pressure reading Nausea and vomiting during Migraine Dysuria Anxiety Surgical History Status post vaginal delivery History of tonsillectomy History of excision of pilonidal cyst Family History Mitral valve prolapse Social History Smoking Status: Never smoker alcohol intake: never substance use type: denies use current occupational status: employed Travel in the last 8 weeks?: None Have you lived/traveled outside US in past 30 days?: No Contact w/someone who lives/traveled outside US past 30 days?: No Exposure to someone with infectious disease in past 14 days?: No Do you have a fever (greater than 100.4 F or 38 C)?: No Have you tested positive for COVID-19?: No Exposed to someone with COVID-19 in past 14 days?: No Do you have a sore throat?: No Do you have a cough?: No Do you have any weakness?: No Are you experiencing any nausea/vomitting?: No Do you have any diarrhea?: No Are you experiencing any unusual bleeding?: No Do you have any muscle aches/pain?: No Do you have any abdominal pain?: No Are you experiencing loss of taste or smell?: No Other Medical History Have you received the Flu Vaccine for this season: No Have you received the Pneumonia Vaccine: No Review of Systems Review of Systems Review of systems:: pertinent systems reviewed and negative unless documented below Meds Home Medications and Allergies Home Medications ?Medication ?Instructions ?Recorded ?Confirmed ?Type vits no.126-ferrous fum 1 tab PO DAILY 12/06/24 History 28 mg iron-folic acid 800 mcg tablet (Classic ) metoclopramide HCl 10 mg tablet 10 mg PO Q8H nausea an d vomiting 10/02/24 12/06/24 Rx (Reglan) #30 tabs ondansetron 4 mg disintegrating 4 mg PO Q6H PRN nausea and 10/02/24 12/06/24 Rx tablet vomiting #30 tabs New Prescriptions to Start Prescriptions: Allergies Allergy/AdvReac Type Severity Reaction Status Date / Time No Known Allergies Allergy Verified 12/06/24 06:46 Exam Data for Last 24 hours Vital signs and Labs for Last 24 Hours: Temp Pulse Resp BP Pulse Ox O2 Del Method 98.1 F 107 H 16 124/65 98 Room Air 12/06/24 05:10 12/06/24 05:41 12/06/24 05:10 12/06/24 05:41 12/06/24 05:10 12/06/24 05:10 Laboratory Results - last 24 hr 12/06/24 05:00: Urine Color Yellow, Urine Appearance Clear, Urine pH 6.5, Ur Specific [place] 1.010, Urine Protein Negative, Urine Glucose (UA) Negative, Urine Ketones Negative, Urine Blood Negative, Urine Nitrate Negative, Urine Bilirubin Negative, Urine Urobilinogen 0.2, Ur Leukocyte Esterase Trace, Urine RBC Occasional, Urine WBC Occasional, Ur Squamous Epith Cells Occasional, Urine Bacteria Trace, Urine Creatinine 60, Urine Total Protein 12.0 12/06/24 05:25: WBC 13.0 H, RBC 3.76 L, Hgb 10.8 L, Hct 31.4 L, MCV 83.5, MCH 28.7, MCHC 34.4, RDW 12.9, Plt Count 380, MPV 11.1 H, Neut % (Auto) 67.3, Lymph % (Auto) 22.1, [place] % (Auto) 6.8, Eos % (Auto) 2.1, Baso % (Auto) 0.4, Neut # (Auto) 8.7 H, Lymph # (Auto) 2.9, [place] # (Auto) 0.9, Eos # (Auto) 0.3, Baso # (Auto) 0.1, PT 9.9 L, INR 0.88 L, APTT 22.8, Fibrinogen 560 H, Sodium 137, Potassium 3.7, Chloride 106, Carbon Dioxide 22, Anion Gap 12.7, BUN 11, Creatinine 0.60, Estimated Creat Clear 179, Estimated GFR 126, Est GFR ( Amer) 153, Glucose 100, Calcium 9.0 I & O for Last 24 hours: Intake & Output 12/03/24 12/04/24 12/05/24 12/06/24 11:59 11:59 11:59 11:59 Weight 168 lb 15.996 oz Constitutional Constitutional: no acute distress *Routine HEENT Exam Head: Present normocephalic Eye: Present EOMI and PERRL ENT: Present mucous membranes moist *Routine Neck Exam Neck: Present supple; Absent lymphadenopathy *Routine Respiratory Exam Respiratory: Present CTA bilaterally *Routine Cardiovascular Exam Cardiovascular: Present RRR *Routine Abdominal Exam Abdominal: Present soft and normoactive bowel sounds; Absent tenderness *Routine Rectal Exam Rectal:: deferred *Routine Genitalia Exam Genitalia:: deferred *Routine Extremities Exam Extremities: Absent cyanosis, clubbing or edema *Routine Skin Exam Skin: Present warm; Absent rash *Routine Neurological Exam Neurological: Present alert and oriented X3 Assessment and Plan *Assessment and plan (1) History of gestational hypertension: Status: Acute Category: Medical Code(s): Z87.59 - Personal history of other complications of , childbirth and the puerperium Plan 1. She is admitted for induction of labor. 2. She denies headache, scotomata or epigastric pain. 3. Her blood work is normal with normal platelets and LFTs. 4. We will expect a vaginal delivery.
--- NOTE | 2024-12-06 08:40 | EXP.LABOR.NO ---
Labor Note Subjective: Date: 12/06/24 Time: 08:40 regular contraction Objective: NST:: Reactive Contractions:: every 2-3 minutes Cervical Dilation:: 3 Effacement:: 75% Station: -2 Membranes: artificially ruptured Comment:: Ruptured membranes and there was clear fluid Fetus: monitoring type:: External Assessment: Labor progressing?: Yes Cephalopelvic disproportion?: No Plan: Anesthesia for epidural?: Yes Continue to labor down?: Yes Plan for ?: No Continue to monitor?: Yes Start pushing?: No Comment:: Her membranes are now ruptured and there was clear fluid. We would expect a vaginal delivery.
--- NOTE | 2024-12-06 10:21 | EXP.LABOR.NO ---
Labor Note Subjective: Date: 12/06/24 Time: 10:05 regular contraction Objective: NST:: Reactive Contractions:: every 2-3 minutes Cervical Dilation:: 4 Effacement:: 90% Station: -2 Membranes: artificially ruptured Fetus: Monitoring?: Yes monitoring type:: External Assessment: Labor progressing?: Yes Cephalopelvic disproportion?: No Plan: Anesthesia for epidural?: No Continue to labor down?: Yes Plan for ?: No Continue to monitor?: Yes Start pushing?: No Comment:: She seems to be progressing well. The cervix has changed to 4 cm. Cervix has thinned significantly and is very soft. She is ni regularly and the nonstress test is reactive. We will expect a vaginal delivery.
[2024-12-06] MEDS: LACTATED RINGERS 1000ML 1,000 ML 250 ML IV (11:01)
--- NOTE | 2024-12-06 12:02 | EXP.ANES.CKL ---
[facility] Disclaimer: The information contained in this section may have been updated after the patient was seen, as this information can be updated by other users. Medical History Gestational hypertension 7 weeks gestation of History of gestational hypertension Hyperemesis gravidarum 38 weeks gestation of Elevated blood pressure reading Nausea and vomiting during Migraine Dysuria Anxiety Surgical History Status post vaginal delivery History of tonsillectomy History of excision of pilonidal cyst Family History Other Mitral valve prolapse Social History Smoking Status: Never smoker alcohol intake: never substance use type: denies use current occupational status: employed Travel in the last 8 weeks?: None Have you lived/traveled outside US in past 30 days?: No Contact w/someone who lives/traveled outside US past 30 days?: No Exposure to someone with infectious disease in past 14 days?: No Do you have a fever (greater than 100.4 F or 38 C)?: No Have you tested positive for COVID-19?: No Exposed to someone with COVID-19 in past 14 days?: No Do you have a sore throat?: No Do you have a cough?: No Do you have any weakness?: No Are you experiencing any nausea/vomitting?: No Do you have any diarrhea?: No Are you experiencing any unusual bleeding?: No Do you have any muscle aches/pain?: No Do you have any abdominal pain?: No Are you experiencing loss of taste or smell?: No [facility] Anesthesia Checklist Patient Identification Patient Identification: Arm Band and Verbal (Name & ) Structural Data Admitted From: Inpatient Planned Operative Procedure/s: labor epidrual Consent for Planned Operative Procedure(s) Verified: Yes Verified Documents: Surgical Consent and History and Physical Additional verifications Patient : Yes Anesthesia Reactions: No Airway Assessment Mallampati Score:: Class II Dentition: Good Dentition Neurological Assessment Level of Consciousness: Awake, Alert and Appropriate Hx Seizures: No Numbness or tingling in extremities: No Anesthesia Plan Anesthesia Risk discussed: Yes Anesthesia Plan: Verified ASA Class: II Anesthesia Type: Epidural
[2024-12-06] MEDS: ePHEDrine SULF 50MG/ML VIAL 10 MG IV (12:09)
--- NOTE | 2024-12-06 12:09 | EXP.LABOR.NO ---
Labor Note Subjective: Date: 12/06/24 Time: 12:09 regular contraction Objective: NST:: Reactive Contractions:: every 2-3 minutes Cervical Dilation:: 5-6 Effacement:: 90% Station: -2 Membranes: artificially ruptured Fetus: Monitoring?: Yes monitoring type:: External Assessment: Labor progressing?: Yes Cephalopelvic disproportion?: No Plan: Anesthesia for epidural?: Yes Continue to labor down?: Yes Plan for ?: No Continue to monitor?: Yes Start pushing?: No
[2024-12-06] MEDS: OXYTOCIN/RINGERS LACTATE 30 UNITS/500 ML BAG 40 UNITS IV (13:26)
--- NOTE | 2024-12-06 13:34 | EXP.DN ---
Delivery Note Delivery Date:: 12/06/24 Delivery Time:: 13:21 Anesthesia Type: Epidural Was labor medically induced?: Yes Induction method: per pitocin protocol Gestational age (weeks): 37 delivered prior to 39 weeks?: Yes Justification for early elective delivery:: Gestational Hypertension Gender: Male at 1 minute: 9 at 5 minutes: 9 LAC or MLE?: LAC Delivery Procedure:: She has gestational hypertension and she was admitted for induction of labor at term. She was started on IV oxytocin and had her membranes ruptured. She progressed under labor epidural to full dilation and delivered spontaneously a liveborn male child at 1:21 PM in the afternoon of December 06, 2024. On delivery of the head the anterior shoulder easily delivered followed by the rest the 's body atraumatically. The oropharynx and nasopharynx were bulb suction. We allowed the cord to continue to pulsate for approximately 1 minute. The cord was then doubly clamped and cut and the was placed on the mother's abdomen for further care. The nurses assigned Apgars of 9 at 1 minute and 9 at 5 minutes. We then obtained cord blood. She received IV oxytocin using gentle traction on the cord and countertraction on the fundus I was able to easily deliver the placenta intact 3 minutes after delivery. It had a normal three-vessel cord. She had a small 2 cm left labial laceration that was repaired with interrupted 3-0 Vicryl Rapide suture. Her human machine interface engineer is Dr. Rosa. Estimated blood loss was approximately 200 cc. Laceration:: labial Placental Delivery Description: Spontaneous
[2024-12-06 15:45] LABS: RPR W/RFX Titers Nonreactive (Nonreactive)
[2024-12-06] MEDS: BENZOCAINE-MENTHOL SPRAY 56GM CAN TP (20:25)
[2024-12-06 20:26] VITALS: BP 126/76; PULSE 96; RESP 18; TEMP 36.8; O2SAT 99
[2024-12-06] MEDS: WITCH HAZEL 40 PADS/BOX 1 EACH TP (20:26)
[2024-12-07 03:14] VITALS: BP 133/94; PULSE 86; RESP 16; TEMP 36.9; O2SAT 98
[2024-12-07] MEDS: IBUPROFEN 800 MG TABLET PO ×2 (03:20→14:50)
[2024-12-07] MEDS: SENNA 8.6MG TABLET 8.6 MG PO (03:20)
[2024-12-07 06:14] LABS: Hematocrit 28.0 % (37.0-47.0)
[2024-12-07 06:20] LABS: Hemoglobin 9.3 g/dL (12.2-16.2)
--- NOTE | 2024-12-07 10:19 | EXP.ACUTE.PN ---
Subjective *Date: 12/07/24 *Time: 10:19 Interval history: She continues to do very well this morning. She is eating and drinking and ambulating. She is breast-feeding. Her lochia is normal. Medical Exam Vital signs and Labs for Last 24 Hours: Vital Signs Temp Pulse Resp BP Pulse Ox O2 Del Method 12/07/24 03:14 98.4 F 86 16 133/94 H 98 Room Air 12/06/24 20:26 98.3 F 96 H 18 126/76 99 Room Air Intake and Output 12/06/24 12/07/24 12/07/24 19:59 03:59 11:59 Intake Total / Balance / Intake: Intake, Total IV Amount / Dextrose 5%-Lactated Ringers 1, 877.083 / 877.083 000 ml @ 125 mls/hr IV .Q8H [facility] Rx#:[id number] Lactated Ringers 1000ML 1,000 1000 / 1000 ml @ 250 mls/hr IV .Q4H [facility] Rx# :[id number] Oxytocin/Ringers Lactate 30 28.2 / 28.2 units In 500 ml @ 3 mls/hr IV . Q25H ONE Rx#:[id number] Oxytocin/Ringers Lactate 30 132 / 132 units In 500 ml @ 40 mls/hr IV .[id number] [facility] Rx#:[id number] Laboratory Results - last 24 hr 12/06/24 05:25: RPR w/Rflx to Titer Nonreactive, Antibody Screen Negative 12/07/24 05:17: Hgb 9.3 L D, Hct 28.0 L I & O for Labs for Last 24 Hours: Intake & Output 12/04/24 12/05/24 12/06/24 12/07/24 11:59 11:59 11:59 11:59 Intake Total 13.8 / 13.8 / Balance 13.8 / 13.8 / Weight 168 lb 15.996 oz Head: Present atraumatic and normocephalic Neck: Present normal inspection Respiratory: Present normal respiratory effort; Absent accessory muscle use Assessment and Plan *Assessment and plan (1) Gestational hypertension: Status: Acute Qualifiers: Trimester: third trimester Qualified Code(s): O13.3 - Gestational [-induced] hypertension without significant proteinuria, third trimester Category: Medical Code(s): O13.9 - Gestational [-induced] hypertension without significant proteinuria, unspecified trimester (2) Normal delivery: Status: Acute Category: Medical Code(s): O80 - Encounter for full-term uncomplicated delivery Plan 1. She is doing very well today. She is breast-feeding well. 2. We will plan to send her home tomorrow.
[2024-12-07] MEDS: ACETAMINOPHEN 500MG TAB 1000 MG PO (14:49)
[2024-12-07 19:51] VITALS: BP 134/86; PULSE 93; RESP 16; TEMP 37; O2SAT 100
[2024-12-08] VITALS: BP 125/81; PULSE 78; RESP 16; TEMP 36.6; O2SAT 99
[2024-12-08 04:00] VITALS: BP 121/83; PULSE 85; RESP 16; TEMP 36.7; O2SAT 100
[2024-12-08] MEDS: ACETAMINOPHEN 500MG TAB 1000 MG PO (08:00)
[2024-12-08] MEDS: IBUPROFEN 800 MG TABLET PO (08:00)
--- NOTE | 2024-12-08 11:35 | EXP.DC.SUM ---
General Admission date:: 12/06/24 Discharge date: 12/08/24 HPI HPI HPI: She is a 19-year-old 2 para 1 at 37+5 weeks gestational age. She had a previous vaginal delivery. Over the last few weeks she had some elevated blood pressures. Laboratory investigations have been negative. Her pressures have been in the 140-150 range over 90-100 range. They seem to be intermittent. She does improve with bedrest. She has had an otherwise uncomplicated . As a result of this she is admitted for induction of labor. B positive blood Rubella immune GBS negative. Hospital Course Hospital Course Hospital Course: Gertrudis is a pleasant 19-year-old G2, P2 day #2 from a normal spontaneous vaginal delivery. She delivered a live viable male on 12/06/2024 at 1321. Apgars were 9 and 9 at 1 and 5 minutes respectively. Infant weighed 7 pounds and 2 ounces at delivery. She was induced at 37+ weeks gestation secondary to gestational hypertension. Her blood pressure prior to and on discharge She has done well and has remained afebrile with her at her hospitalization. She is eating and drinking and ambulating. She is breast feeding. Her lochia is normal. She has B Rh+ blood, she is rubella immune and was group B streptococcus negative. She will be discharged home to follow-up with Dr. Mcmullen in 2 weeks time. She will continue with her vitamins and iron. She will take ibuprofen as well. She was given the usual instructions with respect to limiting her activity, driving and sexual activity. She was given instructions with respect to wound care. Her condition on discharge is stable and improved. Exam Data for Last 24 hours Vital signs and Labs for Last 24 Hours: Temp Pulse Resp BP Pulse Ox O2 Del Method 98.0 F 85 16 121/83 100 Room Air 12/08/24 04:00 12/08/24 04:00 12/08/24 04:00 12/08/24 04:00 12/08/24 04:00 12/08/24 04:00 I & O for Last 24 hours: Intake & Output 12/05/24 12/06/24 12/07/24 12/08/24 23:59 23:59 23:59 23:59 Intake Total 2050.083 / 2050.083 Balance 2050.08 / 08 Weight 168 lb 15.996 oz Constitutional Constitutional: no acute distress and cooperative *Routine HEENT Exam Head: Present normocephalic and atraumatic Eye: Absent conjunctivae pink ENT: Present mucous membranes moist *Routine Neck Exam Neck: Present full ROM *Routine Respiratory Exam Respiratory: Present CTA bilaterally and normal respiratory effort *Routine Cardiovascular Exam Cardiovascular: Present RRR *Routine Abdominal Exam Abdominal: Present soft and normoactive bowel sounds; Absent tenderness *Routine Rectal Exam Patient deferred: visual exam *Routine Exam Patient deferred: external exam *Routine Extremities Exam Extremities: Present full ROM; Absent edema or calf tenderness *Routine Neurological Exam Neurological: Present alert, moving all extremities and normal speech Routine Psychiatric Exam Psychiatric: Present normal affect and cooperative DS: Diagnosis Discharge Diagnosis (1) Gestational hypertension: Status: Acute Code(s): O13.9 - Gestational [-induced] hypertension without significant proteinuria, unspecified trimester Qualifiers: Trimester: third trimester Qualified Code(s): O13.3 - Gestational [-induced] hypertension without significant proteinuria, third trimester (2) Normal delivery: Status: Acute Code(s): O80 - Encounter for full-term uncomplicated delivery Meds Home Medications and Allergies Home Medications ?Medication ?Instructions ?Recorded ?Confirmed ?Type vits no.126-ferrous fum 1 tab PO DAILY 11/12/22 12/06/24 History 28 mg iron-folic acid 800 mcg tablet (Classic ) metoclopramide HCl 10 mg tablet 10 mg PO Q8H nausea and vomiting 10/02/24 12/06/24 Rx (Reglan) #30 tabs ondansetron 4 mg disintegrating 4 mg PO Q6H PRN nausea and 10/02/24 12/06/24 Rx tablet vomiting #30 tabs acetaminophen 500 mg tablet 500 mg PO Q6H PRN fever or pain 12/08/24 Rx #30 tabs ferrous sulfate 325 mg (65 mg 325 mg PO DAILY #30 tabs 12/08/24 Rx iron) tablet,delayed release ibuprofen 800 mg tablet 800 mg PO Q8H PRN pain #60 tabs 12/08/24 Rx sennosides 8.6 mg tablet (Senna 8.6 mg PO BIDP PRN Constipation 12/08/24 Rx Lax) #60 tabs New Prescriptions to Start Prescriptions: acetaminophen Dee Fraser ferrous sulfate Dee Fraser ibuprofen Dee Fraser sennosides [Senna Lax] Dee Fraser Allergies Allergy/AdvReac Type Severity Reaction Status Date / Time No Known Allergies Allergy Verified 12/06/24 06:46 Discharge Plan Disposition Patient Disposition: Home, Self-Care Condition: Good Discharge Order Discharge Orders: Discharge Order (Routine); Ordered 12/08/24 Ordered By: Dee Fraser Follow up Plan Follow up with: Jackie Mcmullen DO [Staff Physician, INSURANCE SPECIALIST] - 12/21/24 4:00 pm Prescriptions/Medication Reconciliation: New sennosides [Senna Lax] 8.6 mg Tablet 8.6 mg PO BIDP PRN (Reason: Constipation) Qty: 60 2RF ibuprofen 800 mg tablet 800 mg PO Q8H PRN (Reason: pain) Qty: 60 2RF acetaminophen 500 mg tablet 500 mg PO Q6H PRN (Reason: fever or pain) Qty: 30 3RF ferrous sulfate 325 mg (65 mg iron) tablet,delayed release (DR/EC) 325 mg PO DAILY Qty: 30 3RF Continued ondansetron 4 mg tablet,disintegrating 4 mg PO Q6H PRN (Reason: nausea and vomiting) Qty: 30 1RF metoclopramide HCl [Reglan] 10 mg tablet 10 mg PO Q8H Qty: 30 1RF Classic 28 mg iron- 800 mcg tablet 1 tab PO DAILY Problem Reconciliation Problems Reviewed?: Yes Patient Discharge Instructions ACTIVITY: Continue current activity DIET: regular diet Additional Instructions: Congratulations on the delivery of your sweet baby boy. It is my privilege to be a part of your INSURANCE SPECIALIST team Discharge: -Take 800 mg Ibuprofen every 8 hours as needed for pain. You can also take 500-1000 mg of Tylenol in between doses, every 6-8 hours. -Colace can be taken 1-2 times per day as you need to soften your stool. Make sure to drink at least 8 cups of water per day. -Iron supplements can make you constipated. You can take iron tablets every other day if constipation is too bad. -Nothing in the vagina for 6 weeks - no intercourse, douching, tampons. No tub baths or swimming pools. -Do not lift greater than 20pounds for 2 weeks, this is the equivalent of 2 gallons of milk. -Reasons to return to L&D or call On-Call doctor - fever (greater than 100.4) - heavy vaginal bleeding (soaking through 1 pad in less than 2 hours or passing clots that are egg sized) - vaginal discharge (malodorous and/or purulent) - severe headaches, leg tenderness/edema, or any other symptoms that warrant immediate medical attention. depression/blues - Normal to feel anxious/overwhelmed for first 2 weeks - Talk to your doctor if: anxiety lasts over 2 weeks, trouble bonding with baby, withdrawing from other family members, thoughts of harming yourself or others Blood pressure and preeclampsia instructions 1. Please take your blood pressure twice daily. 2. Please call if greater than 2 values are higher than: 150 systolic (the top number) or 100 diastolic (the bottom number). 3. Please go to the emergency room or labor and delivery triage if any value is higher than: 160 systolic (the top number) or 110 diastolic (the bottom number). 4. Please call if unrelenting headache (does not go away with rest or Tylenol or ibuprofen), changes in vision (spots, floaters, flashes of light), chest pain, shortness of breath, or right upper quadrant (liver) abdominal pain. Dee Fraser DO [facility] [phone] *Nothing in the Vagina for 6 weeks* *No strenuous activity* *No heavy lifting* *No tub baths until okay's by MD* Patient Instructions: Depression, Hemorrhage, DI for Labor and Delivery, Vaginal , DI for Pre-eclampsia, [facility] Post Discharge Instructions Print Language: Serbian Providers Primary Care Provider: Shayna Guy Admit Provider: Jackie Mcmullen Attending Provider: Mikey Villasenor
== END 2024-12-08 15:02 | disposition home or self-care (01) | DRG 807 ==
PROVIDERS: Admitting Provider Obstetrics & Gynecology; PCP Nurse Practitioner; Visit Provider Nurse Practitioner Obstetrics & Gynecology
DX: O13.4 Gestational [pregnancy-induced] hypertension without significant proteinuria, complicating childbirth (principal); Z37.0 Single live birth; Z3A.37 37 weeks gestation of pregnancy; O70.0 First degree perineal laceration during delivery; Z79.899 Other long term (current) drug therapy; Z23 Encounter for immunization
CPT/HCPCS: 51702; 59025; 80048; 81001; 82570; 84156; 85014; 85018; 85025; 85384; 85610; 85730; 86592; 86850; 94761; J2003; J2405; J2795; J3010; J7120; J7121

== ENCOUNTER 2025-01-08 10:00 | Outpatient (CLI) | payer OTHER, SELFPAY ==
[2025-01-08 15:36] LABS: Microscopic, Urine URINE MICROSCOPIC (MICROSCOPIC)
[2025-01-08 16:30] LABS: Hematocrit 32.6 % (37.0-47.0); Hemoglobin 10.2 g/dL (12.2-16.2); Immature Granulocytes % 0.2 %; Mean Corpuscular HGB Conc 31.3 g/dL (31.8-35.4); Mean Corpuscular Hemoglobin 27.1 pg (27.0-31.2); Mean Corpuscular Volume 86.5 fl (81-99); Nucleated Red Blood Cells % 0 %; Platelet Count 298 K/mm3 (142-424); Red Blood Count 3.77 M/mm3 (4.20-5.40); Red Cell Distribution Width-SD 44.0 fL; White Blood Count 6.6 K/mm3 (4.8-10.8)
[2025-01-08 16:52] LABS: Chloride 106 mmol/L (98-107); Potassium 3.6 mmoL/L (3.5-5.1); Sodium 143 mmol/L (136-145)
[2025-01-08 16:54] LABS: Blood Urea Nitrogen 8 mg/dl (7-17)
[2025-01-08 16:55] LABS: Alanine Aminotransferase 32 U/L (12-78); Alkaline Phosphatase 86 U/L (38-126); Aspartate Amino Transferase 29 U/L (14-36); Bilirubin,Total 0.3 mg/dl (0.2-1.3); Calcium 9.2 mg/dl (8.4-10.2); Creatinine,Serum 0.60 mg/dl (0.52-1.04); Estimated Glomerular Filt Rate 126 ml/min (>60); GFR (African American) 153 ML/MIN (>60); Glucose 89 mg/dl (74-100); Magnesium 1.7 mg/dl (1.6-2.3); Total Protein,Serum 6.4 g/dl (6.3-8.2)
[2025-01-08 16:58] LABS: Bilirubin,Urine Negative (Negative); Color,Urine YELLOW (Yellow); Glucose,Urine (UA) Negative (Negative); Ketones,Urine Negative (Negative); Leukocyte Esterase,Urine TRACE (Negative); PH,Urine 6.0 (5.0-8.5); Protein,Urine Negative (Negative); Specific Gravity, Urine 1.020 (1.005-1.030); Urobilinogen,Urine 0.2 EU/dl (0.2)
[2025-01-08 17:09] LABS: Free T4 (Free Thyroxine) 1.09 ng/dl (0.78-2.19)
[2025-01-08 17:26] LABS: Thyroid Stimulating Hormone 1.40 uIU/mL (0.465-4.68)
[2025-01-08 17:37] LABS: Amorphous Sediment,Urine 1+ /lpf; Bacteria,Urine 4+ /lpf; Squamous Epithelial Cell,Urine 20-50 #/hpf (0-5)
[2025-01-08 18:34] LABS: 25-OH Vitamin D, Total 40.0 ng/mL (30-100)
[2025-01-08 19:08] LABS: Vitamin B12 333 pg/mL (239-931)
[2025-01-08 19:14] LABS: Anion Gap 14.6 mEq/L (5-15); Carbon Dioxide 26 mmol/L (22.0-30.0)
[2025-01-08 19:15] LABS: Albumin Level 3.8 g/dl (3.5-5.0); Albumin/Globulin Ratio 1.5 (1.1-1.8); Globulin 2.6 g/dL (1.3-3.2)
[2025-01-08 19:34] LABS: Folate 5.04 ng/mL
== END 2025-01-08 23:59 | disposition home or self-care (01) ==
LOC: LAB.DROPOF 01-09 08:18
PROVIDERS: PCP Nurse Practitioner; Visit Provider Nurse Practitioner
DX: O99.891 Other specified diseases and conditions complicating pregnancy (principal); F53.0 Postpartum depression; O21.9 Vomiting of pregnancy, unspecified; R82.71 Bacteriuria; Z87.59 Personal history of other complications of pregnancy, childbirth and the puerperium
CPT/HCPCS: 80053; 81001; 82306; 82607; 82746; 83735; 84439; 84443; 85025; 87086